=== PATIENT | female | born 1950 | race Caucasian/White ===

== ENCOUNTER 2018-10-05 15:55 | Inpatient (IN) ==
[2018-10-05] MEDS ORDERED: MoRPHine SULFATE 4 MG/ML 1 ML CARP\\VIAL IV STA ×2 (16:41→19:27)
[2018-10-05] MEDS ORDERED: ONDANSETRON INJ 2 MG/ML 2 ML VIAL IV STA ×2 (16:41→19:27)
[2018-10-05] MEDS ORDERED: DOXYCYCLINE HYCLATE 100 MG CAP PO STA (16:41)
[2018-10-05] MEDS ORDERED: LIDOCAINE HCL 1% 20 ML VIAL ONE (17:23)
[2018-10-05 17:24] LABS: Mean Corpuscular Hgb Conc 32.9 g/dL (32-36)
[2018-10-05 17:38] LABS: Hematocrit (blood only) 37.4 % (37-47); Hemoglobin 12.3 g/dL (12.0-16.0); Mean Corpuscular Volume 79.6 fL (80-100); RDW Coefficient of Variation 16.8 % (11.5-14.5); RDW Standard Deviation 49.2 fL (36.4-46.3); White Blood Count 12.23 K/uL (4.8-10.8)
[2018-10-05] MEDS ORDERED: cefTRIAXone SODIUM 2,000 MG in DEXTROSE 5% 50 ML IV STA (18:05)
[2018-10-05 18:08] LABS: Platelet Count 116 K/uL (130-400)
[2018-10-05 18:09] LABS: Basophils # (auto) 0.01 K/uL (0-0.2); Basophils % (auto) 0.1 %; Immature Granulocytes # (auto) 0.02 K/uL (0.00-0.02); Immature Granulocytes % (auto) 0.2 %; Lymphocytes % (auto) 4.9 %; Monocytes # (auto) 0.63 K/uL (0.11-0.59); Monocytes % (auto) 5.2 %; Neutrophils # (auto) 10.97 K/uL (1.4-6.5); Neutrophils % (auto) 89.6 %; Ovalocytes 1+; Platelet Estimate Decreased (Normal)
[2018-10-05 19:04] LABS: CSF Count Tube # 3
[2018-10-05 19:05] LABS: CSF Xanthrochromic No xanthochromia
[2018-10-05 19:21] LABS: Red Blood Cell CSF (A) 530 /uL (0-); White Blood Cell CSF (B) 1750 /uL (0-5)
[2018-10-05 19:22] LABS: Red Blood Cell CSF (B) 480 /uL (0-)
[2018-10-05 19:23] LABS: Mononuclear WBC CSF 20.7 %
[2018-10-05 19:24] LABS: Polynuclear WBC CSF 79.3 %; White Blood Cell CSF (A) 1936 /uL (0-5)
[2018-10-05 19:27] LABS: Appearance CSF Cloudy; Color CSF Colorless
[2018-10-05] MEDS ORDERED: VANCOMYCIN CONSULT ACTIVE PRN (19:30)
[2018-10-05] MEDS ORDERED: VANCOMYCIN HCL 1,750 MG in SODIUM CHLORIDE 0.9% 500 ML IV ONE (19:30)
[2018-10-05] MEDS ORDERED: AMPICILLIN SOD 1 GM VIAL IV ONE (19:32)
[2018-10-05] MEDS ORDERED: AMPICILLIN 2,000 MG in SODIUM CHLOR 0.9% AD-VAN 100 ML IV ONE (19:45)
[2018-10-05] MEDS ORDERED: ACETAMINOPHEN 325 MG TAB PO STA (19:54)
[2018-10-05] MEDS ORDERED: LACTATED RINGER'S 1,000 ML IV ONE (20:02)
[2018-10-05] MEDS ORDERED: KETOROLAC TROMETHAMINE 15 MG/ML VIAL IV ONE (20:25)
[2018-10-05] MEDS ORDERED: PROMETHAZINE HCL 12.5 MG in SODIUM CHLORIDE 0.9% 50 ML IV STA (20:30)
--- NOTE | 2018-10-05 20:54 | Emergency Department Note ---
Entered by María Elena Valadez acting as a scribe for History of Present Illness General Chief complaint: Illness Stated complaint: REFERRED BY DOCTOR FOR POSSIBLE MENINGITIS Time Seen by Provider: 10/05/18 16:15 Source: patient History of Present Illness Onset (ago): week(s) 1 Location: head, neck and back Pain Consistency: + other (persistent) Maximum Pain Intensity: 10 Quality: + other (illness) Exacerbated By: + movement Associated symptoms: + denies other symptoms (rhinorrhea, photophobia), + fever/chills (fever), + headaches, + nausea/vomiting (nausea) and + other (back pain, neck pain, body aches); no cough and no shortness of breath The patient is a 68 year old female who presents to the ED with complaints of persistent illness starting a week ago. The patients daughter states that the patient was here this morning and had a full work up for the same symptoms. She reports that she has been having a headache, back pain, and neck pain. She states that she was supposed to leave with a prescription of Doxycycline for anaplasmosis, but it wasnt there. She notes that she did have blood and protein in her urine so they also suspected a UTI. She states that the patient went to her PCP 2 hours ago and while there she had a fever of 102 with lower sat urations than normal. She states that they were concerned as she has worse pain with movement of her neck. She reports that they were unsure if it was just anaplasmosis and a UTI or meningitis so they sent her here for an LP to rule out meningitis. She notes that they did send out a urine culture. The patient complains of body aches and nausea. She notes that she is exposed to ticks often and last noticed one 10 days ago. The patient denies a cough, rhinorrhea, shortness of breath, photophobia, and a history of any back surgeries. Home Medications Home Medications Medication Instructions Recorded Confirmed Type citalopram [Celexa] 40 mg PO QAM 06/13/18 10/05/18 History lisinopril [Zestril] 40 mg PO QAM 06/13/18 10/05/18 History multivitamin 1 tab PO QAM 06/13/18 10/05/18 History calcium carbonate-vitamin D3 2 tab PO QAM 06/20/18 10/05/18 History [Calcium 600 + D(3)] ferrous sulfate 325 mg PO QAM 06/20/18 10/05/18 History aspirin 81 mg PO QAM 07/20/18 10/05/18 History atorvastatin 40 mg PO QAM 07/20/18 10/05/18 History omeprazole 20 mg PO BID 07/20/18 10/05/18 History docusate sodium [Colace] 100 mg PO BID #60 cap 10/05/18 10/05/18 Rx oxycodone 5 mg PO DAILY #14 tab 10/05/18 10/05/18 Rx sennosides [Senokot] 8.6 mg PO DAILY #30 tab 10/05/18 10/05/18 Rx Allergies Allergy/AdvReac Type Severity Reaction Status Date / Time Macrolide Antibiotics Allergy Mild abdominal Verified 10/05/18 18:38 pains Sulfa (Sulfonamide Allergy Mild abdominal Verified 10/05/18 18:38 Antibiotics) pains erythromycin base AdvReac Intermediate VOMITING Verified 10/05/18 18:38 Past Med/Surg History Medical History Hypertension (Chronic) IBS (irritable bowel syndrome) (Chronic) History of TIA (transient ischemic attack) (Resolved) 2000--no deficits Anemia Depression Diabetes mellitus, type 2 diet controlled Former smoker GERD (gastroesophageal reflux disease) Kidney stones Surgical History History of colonoscopy History of detached retina repair History of dilatation and curettage History of esophagogastroduodenoscopy (EGD) History of hysterectomy with unilateral oophorectomy History of tooth extraction some upper teeth History of wisdom tooth extraction Family History Uncle Family history of malignant hyperthermia maternal uncle Mother Family history of reaction to anesthesia "quit breathing after major back surgery" Father Family history of diabetes mellitus Grandmother (Paternal) Family history of diabetes mellitus Grandfather (Paternal) Family history of diabetes mellitus Uncle Family history of diabetes mellitus Aunt Family history of diabetes mellitus Brother Family history of diabetes mellitus Social History Preferred Language: Yi Communication Ability: Effective Beliefs That Will Affect Care: None Current Living Situation: Spouse Current Living Situation Comment: Lives with Feels Safe at Home: Yes Smoking Status: Never smoker Second Hand Exposure: No Hx Alcohol Use: No Hx Substance Use: No Review of Systems See HPI for pertinent positives & negatives. and A total of 10 systems reviewed and were otherwise negative Physical Exam Vital Signs Vital Signs - 24 hr 10/05/18 16:07 10/05/18 18:00 10/05/18 19:30 Temperature 37.8 C H Temperature Source Oral Sepsis Recent Fever Within 48 Hours No Sepsis New/Unexplained Change in Mental Status No Sepsis Action Taken by Nursing No Action Required Pulse Rate 79 Pulse Rate [Right Finger] 73 75 Pulse Rhythm [Right Finger] Regular Pulse Strength [Right Finger] Normal Respiratory Rate 20 18 18 Respiratory Effort / Characteristics Non-Labored Respiratory Depth Normal Respiratory Pattern Regular Blood Pressure 129/79 Blood Pressure [Right Arm] 136/63 149/70 H Blood Pressure Mean 95 Blood Pressure Mean [Right Arm] 87 96 Pulse Oximetry 91 96 95 Oxygen Delivery Method Room Air Room Air Room Air CONSTITUTIONAL/VITAL SIGNS: Reviewed / noted above. GENERAL: Non-toxic in appearance. INTEGUMENTARY: Warm, dry, and [place]. HEAD: Normocephalic. EYES: without scleral icterus or trauma. ENT/OROPHARYNX: clear and moist. LYMPHADENOPATHY/NECK: Is supple without lymphadenopathy. Neck stiffness and discomfort with flexion on exam. RESPIRATORY: Lungs clear and equal. CARDIOVASCULAR: Regular rate and rhythm. GI/ABDOMEN: Soft and nontender. No organomegaly or pulsatile mass. No rebound or guarding. Normal bowel sounds. EXTREMITIES: Warm and well perfused. BACK: No CVA tenderness. NEUROLOGICAL: Intact without focal deficits. PSYCHIATRIC: normal affect. MUSCULOSKELETAL: Normally developed with good muscle tone. Procedures Free Text Procedures Lumbar Puncture Indication: Rule out Meningitis. Verbal consent was obtained after the risks and benefits were explained, including but not limited to headache, bleeding/clotting, scarring, infection, pain, and bone/joint/nerve damage. At this time, the risks of the procedure are less than the risks of NOT performing the procedure. A time out was taken and the correct patient and site identified. The patient was placed in the left lateral recumbent position and the back was prepped with betadine and draped in the standard fashion. The L3 intervertebral space was identified, anesthetized locally with 1% lidocaine without epinephrine, and the spinal needle was inserted through the skin with the bevel parallel to the dural fibers. The needle was carefully advanced into the lumbar cistern and 4 tubes (a total of 5- 6 cc) of slightly cloudy CSF was obtained. The stylet was replaced and the needle was removed. A bandaid was placed and the patient was placed in the supine position. The patient tolerated the procedure well and there were no complications. Course 1623: I reviewed the EMR at this time. The patient was at the ED at 0400 today. She had a work up including a normal CBC, low platelet count, normal chemistries and LFTs, a urinalysis that showed contamination, negative Lyme, negative chest x-ray, CT scan of brain and neck that were negative, as well as an MRI/MRA of the brain that was negative, a neck MRA that was negative, and a CT of the abdomen/pelvis that was negative. She was discharged on Doxycycline. They were treating her for possible anaplasmosis. She went to her PCP today and they sent her back here. 1628: Past medical records reviewed. The patient was evaluated in room C6. A complete history and physical exam was performed. 1722: I performed a lumbar puncture at this time. 1935: I reevaluated the patient and updated her and her daughter on her test results at this time. I discussed the treatment plan with them. They verbally agree and understand. 1942: I discussed the patient's case with Dr. Khadijah Monahan. He will evaluate the patient for further management. Consultations Consultation #1: I discussed the patient's case with Dr. Khadijah Monahan. He will evaluate the patient for further management. Time: 19:42 Administered Medications Vancomycin HCl 1,750 mg/ (Sodium Chloride) 535 mls @ 200 mls/hr IV NOW ONE; Protocol Stop: 10/05/18 21:59 Last Admin: 10/05/18 20:20 Dose: 200 mls/hr Documented by: [id number] Lactated Ringer's (Lr) 1,000 mls @ 200 mls/hr IV .Q5H ONE Stop: 10/06/18 01:01 Last Admin: 10/05/18 20:37 Dose: 200 mls/hr Documented by: [id number] Discontinued Medications Acetaminophen (Tylenol) 650 mg PO NOW STA Stop: 10/05/18 19:55 Last Admin: 10/05/18 20:19 Dose: 650 mg Documented by: [id number] Doxycycline Hyclate (Vibramycin) 100 mg PO NOW STA Stop: 10/05/18 16:42 Last Admin: 10/05/18 17:14 Dose: 100 mg Documented by: [id number] Ceftriaxone Sodium 2,000 mg/ (Dextrose) 70 mls @ 100 mls/hr IV NOW STA Stop: 10/05/18 18:46 Last Infusion: 10/05/18 19:38 Dose: 0 mls/hr Documented by: [id number] Admin: 10/05/18 18:52 Dose: 100 mls/hr Documented by: [id number] Ampicillin Sodium 2,000 mg/ (Sodium Chloride) 100 mls @ 200 mls/hr IV NOW ONE Stop: 10/05/18 20:14 Last Infusion: 10/05/18 20:32 Dose: 0 mls/hr Documented by: [id number] Admin: 10/05/18 19:58 Dose: 200 mls/hr Documented by: [id number] Lidocaine HCl (Xylocaine 1% (Local)) Confirm Administered Dose 20 ml .ROUTE .[facility] ONE Stop: 10/05/18 17:24 Last Admin: 10/05/18 17:35 Dose: 20 ml Documented by: [id number] Morphine Sulfate (Morphine Sulfate) 4 mg IV NOW STA Stop: 10/05/18 16:42 Last Admin: 10/05/18 17:14 Dose: 4 mg Documented by: [id number] Morphine Sulfate (Morphine Sulfate) 4 mg IV NOW STA Stop: 10/05/18 19:28 Last Admin: 10/05/18 19:31 Dose: 4 mg Documented by: [id number] Ondansetron HCl (Zofran) 4 mg IV NOW STA Stop: 10/05/18 16:42 Last Admin: 10/05/18 17:14 Dose: 4 mg Documented by: [id number] Ondansetron HCl (Zofran) 4 mg IV NOW STA Stop: 10/05/18 19:28 Last Admin: 10/05/18 19:31 Dose: 4 mg Documented by: [id number] Medical Decision Making Differential Diagnosis Differential diagnosis: Etiologies such as viral syndrome, otitis, pharyngitis, pneumonia, influenza, meningitis, urinary tract infection, sepsis, bacteremia, as well as others were entertained. Medical Records Attestation: I reviewed the patient's medical records. Home Medications Current Medication List: was personally reviewed by me Laboratory Data Attestation: I reviewed the patient's lab results. Result diagrams: 10/05/18 17:16 Lab Results 10/05/18 10/05/18 10/05/18 Range/Units 17:16 17:48 17:48 WBC 12.23 H (4.8-10.8) K/uL RBC 4.70 (4.2-5.4) M/uL Hgb 12.3 (12.0-16.0) g/dL Hct 37.4 (37-47) % MCV 79.6 L (80-100) fL MCH 26.2 (25-34) pg MCHC 32.9 (32-36) g/dL RDW Std Deviation 49.2 H (36.4-46.3) fL RDW Coeff of Christian 16.8 H (11.5-14.5) % Plt Count 116 L (130-400) K/uL Immature Gran % (Auto) 0.2 % Neut % (Auto) 89.6 % Lymph % (Auto) 4.9 % [place] % (Auto) 5.2 % Eos % (Auto) 0.0 % Baso % (Auto) 0.1 % Immature Gran # (Auto) 0.02 (0.00-0.02) K/uL Neut # (Auto) 10.97 H (1.4-6.5) K/uL Lymph # (Auto) 0.60 L (1.2-3.4) K/uL Brule # (Auto) 0.63 H (0.11-0.59) K/uL Eos # (Auto) 0.00 (0-0.5) K/uL Baso # (Auto) 0.01 (0-0.2) K/uL Platelet Estimate Decreased L (Normal) Ovalocytes 1+ Lactate (0.4-2.0) mmol/L Magnesium (1.8-2.4) mg/dl CSF Appearance Cloudy CSF Color Colorless Xanthrochromic No xanthochromia CSF WBC 1936 H* (0-5) /uL CSF RBC 530 (0-) /uL CSF Cell Count Tube # 3 CSF Mononuclear WBCs 20.0 % CSF Mononuclear WBCs % 20.7 % CSF Polynuclear WBCs 80.0 % CSF Polynuclear WBCs % 79.3 % CSF Chemistry Tube # 1 CSF Glucose 82 H (40-70) mg/dl CSF Total Protein 304.0 H (15-45) mg/dl 10/05/18 10/05/18 Range/Units 20:06 20:06 WBC (4.8-10.8) K/uL RBC (4.2-5.4) M/uL Hgb (12.0-16.0) g/dL Hct (37-47) % MCV (80-100) fL MCH (25-34) pg MCHC (32-36) g/dL RDW Std Deviation (36.4-46.3) fL RDW Coeff of Christian (11.5-14.5) % Plt Count (130-400) K/uL Immature Gran % (Auto) % Neut % (Auto) % Lymph % (Auto) % [place] % (Auto) % Eos % (Auto) % Baso % (Auto) % Immature Gran # (Auto) (0.00-0.02) K/uL Neut # (Auto) (1.4-6.5) K/uL Lymph # (Auto) (1.2-3.4) K/uL Brule # (Auto) (0.11-0.59) K/uL Eos # (Auto) (0-0.5) K/uL Baso # (Auto) (0-0.2) K/uL Platelet Estimate (Normal) Ovalocytes Lactate 0.9 (0.4-2.0) mmol/L Magnesium 2.4 (1.8-2.4) mg/dl CSF Appearance CSF Color Xanthrochromic CSF WBC (0-5) /uL CSF RBC (0-) /uL CSF Cell Count Tube # CSF Mononuclear WBCs % CSF Mononuclear WBCs % % CSF Polynuclear WBCs % CSF Polynuclear WBCs % % CSF Chemistry Tube # CSF Glucose (40-70) mg/dl CSF Total Protein (15-45) mg/dl Blood Pressure Blood Pressure Findings: Normal blood pressure Blood Pressure Disposition: did not require urgent referral MDM Narrative This is a 68-year-old female who presents to the ED with a chief complaint of headache, fever as well as a little nausea and achiness all over. She reports some neck discomfort with flexion. Denies any light sensitivity. She was seen here earlier in the day around 4 AM and had a significant work-up. She had a normal WBC at that time. She was given IV Rocephin as well as a dose of doxycycline orally for possibility of anaplasmosis. She did have a low platelet count on her CBC this morning. The patient presents again this evening with continued symptoms. She was seen at the primary care's office and then sent back here. The patient's temperature here today is 37.8. 91% oxygen satur ations on room air. White blood cell count was 12.2. Platelet count is 116. A lumbar puncture reveals a white cell count of 1936. Protein is elevated as is the glucose. Additional studies were performed earlier today. The patient was treated with IV morphine as well as IV Zofran and given a dose of oral doxycycline. She was additionally treated with IV Rocephin, IV vancomycin and IV ampicillin. She will be seen by the hospitalist for further inpatient evaluation and care. Impression & Plan Meningitis, Thrombocytopenia, Fever Critical Care Time Critical Care Time: Yes Total Critical Care Time: 32 I have personally spent 32 minutes of critical care time in the direct management of this patient. This includes bedside care, interpretation of diagnostic studies, and testing, discussion with consultants, patient, and family members, and other required patient management activities. This 32 minutes is in excess of all separately billable procedures. Discharge Plan Visit Data Chief Complaint: Illness Stated Complaint: REFERRED BY DOCTOR FOR POSSIBLE MENINGITIS ED Provider: David Hu Discharge Problem: Meningitis, Thrombocytopenia, Fever Patient Disposition: Being Evaluated by Hospitalist Forms Stand Alone Forms: My [facility] Prescriptions Prescriptions: No Action oxycodone 5 mg tablet 5 mg PO DAILY Qty: 14 RF: 0 sennosides [Senokot] 8.6 mg tablet 8.6 mg PO DAILY Qty: 30 RF: 0 docusate sodium [Colace] 100 mg capsule 100 mg PO BID Qty: 60 RF: 0 lisinopril [Zestril] 40 mg tablet 40 mg PO QAM RF: 0 citalopram [Celexa] 40 mg tablet 40 mg PO QAM RF: 0 multivitamin Tablet 1 tab PO QAM RF: 0 calcium carbonate-vitamin D3 [Calcium 600 + D(3)] 600 mg(1,500mg) -200 unit Tablet 2 tab PO QAM RF: 0 ferrous sulfate 325 mg (65 mg iron) Tablet 325 mg PO QAM RF: 0 atorvastatin 40 mg Tablet 40 mg PO QAM RF: 0 aspirin 81 mg Tablet,Delayed Release (Dr/Ec) 81 mg PO QAM RF: 0 omeprazole 20 mg Tablet,Delayed Release (Dr/Ec) 20 mg PO BID RF: 0 Referrals Referrals: Aleja Godoy MD [Primary Care Provider] - Discharge Problem: Fever Qualifiers: Fever type: unspecified Qualified Code(s): R50.9 - Fever, unspecified The scribe's documentation has been prepared under my direction and personally reviewed by me in its entirety. I confirm that the note above accurately reflects all work, treatment, procedures, and medical decision making performed by me.
--- NOTE | 2018-10-05 21:52 | History & Physical Report ---
Date of Service October 05, 2018 Assessment & Plan (1) Sepsis: Secondary to possible bacterial meningitis hypertension, slightly elevated secondary illness hyperlipidemia on statin Rx mood disorder, stable DM 2, diet-controlled. Well-controlled as of recent outpatient hemoglobin A1c of 6.5 last March 2018 Thrombocytopenia secondary to sepsis History TIA as per records GMF Cultures, IV Vancomycin, Ceftriaxone IV Decadron until pneumococcal meningitis ruled out ID consult RE [employer] infection ISS BG goal 1 40-1 80, basal insulin to attain goal given expected hyperglycemia secondary to steroid Rx, update hemoglobin A1c DVT prophylaxis. SCDs RE thrombocytopenia Full code Patient's daughter requesting updates from providers. Ms. Jessica Singer, contact #[phone]. History of Present Illness Chief Complaint: Headache/fever Primary Care Provider: Aleja Lyles MD History obtained from patient, family, and records. Medical history significant for hypertension, hyperlipidemia, mood disorder, DM 2, diet-controlled, history of TIA as per records Yesterday, patient noted achy headache, neck/spine pain. Patient had chills at home. No rashes noted. Nausea, emesis symptoms. No chest pain, no S OB. Patient seen at the emergency room this morning. Patient noted to be thrombocytopenic. Unremarkable imaging. Tick labwork drawn. Patient prescribed Doxycycline for possible tickborne infection. Patient sent back to the ER by PCP due to concerns for [employer] infection. Lumbar puncture done at the ER. Patient given IV Vancomycin, Ceftriaxone for possible bacterial meningitis. No known sick contacts, no previous history of meningitis. Medical History as above Surgical History : Appendectomy, eye surgery, hysterectomy Family History : Breast cancer, diabetes, heart disease, glaucoma Personal/Social history : Non-smoker, no EtOH intake, retired from postal work/cleaning business Allergies Allergy/AdvReac Type Severity Reaction Status Date / Time Macrolide Antibiotics Allergy Mild abdominal Verified 10/05/18 18:38 pains Sulfa (Sulfonamide Allergy Mild abdominal Verified 10/05/18 18:38 Antibiotics) pains erythromycin base AdvReac Intermediate VOMITING Verified 10/05/18 18:38 Home Medications Home Medications Medication Instructions Recorded Confirmed Type citalopram [Celexa] 40 mg PO QAM 06/13/18 10/05/18 History lisinopril [Zestril] 40 mg PO QAM 06/13/18 10/05/18 History multivitamin 1 tab PO QAM 06/13/18 10/05/18 History calcium carbonate-vitamin D3 2 tab PO QAM 06/20/18 10/05/18 History [Calcium 600 + D(3)] ferrous sulfate 325 mg PO QAM 06/20/18 10/05/18 History aspirin 81 mg PO QAM 07/20/18 10/05/18 History atorvastatin 40 mg PO QAM 07/20/18 10/05/18 History omeprazole 20 mg PO BID 07/20/18 10/05/18 History docusate sodium [Colace] 100 mg PO BID #60 cap 10/05/18 10/05/18 Rx oxycodone 5 mg PO DAILY #14 tab 10/05/18 10/05/18 Rx sennosides [Senokot] 8.6 mg PO DAILY #30 tab 10/05/18 10/05/18 Rx Past Med/Surg History Medical History Hypertension (Chronic) IBS (irritable bowel syndrome) (Chronic) History of TIA (transient ischemic attack) (Resolved) 2000--no deficits Anemia Depression Diabetes mellitus, type 2 diet controlled Former smoker GERD (gastroesophageal reflux disease) Kidney stones Surgical History History of colonoscopy History of detached retina repair History of dilatation and curettage History of esophagogastroduodenoscopy (EGD) History of hysterectomy with unilateral oophorectomy History of tooth extraction some upper teeth History of wisdom tooth extraction Family History Uncle Family history of malignant hyperthermia maternal uncle Mother Family history of reaction to anesthesia "quit breathing after major back surgery" Father Family history of diabetes mellitus Grandmother (Paternal) Family history of diabetes mellitus Grandfather (Paternal) Family history of diabetes mellitus Uncle Family history of diabetes mellitus Aunt Family history of diabetes mellitus Brother Family history of diabetes mellitus Social History Preferred Language: Croatian Communication Ability: Effective Beliefs That Will Affect Care: None Current Living Situation: Spouse Current Living Situation Comment: Lives with Other Information That Helps Us Care for You: No Feels Safe at Home: Yes Smoking Status: Never smoker Second Hand Exposure: No Hx Alcohol Use: No Hx Substance Use: No Review of Systems Review of Systems: As per HPI, all 10 systems reviewed, all other ROS negative Physical Exam Physical Exam: GENERAL: Slightly uncomfortable, no respiratory distress, pleasant SKIN: Normal color, warm HEENT: [place] palpebral conjunctivae, no ptosis, dry buccal mucosa NECK : Nuchal rigidity, minimal posterior cervical CHEST : CTA, no tenderness HEART : RRR, no obvious murmurs ABDOMEN: Some distention, nontender EXTREMITIES : No LE swelling/tenderness, no other conspicuous deformities noted NEUROLOGIC : Coherent, no facial asymmetry, minimal nuchal rigidity Results & Data Vital Signs (Past 12 Hours) Vital Signs Temp Pulse Pulse Resp BP BP Pulse Ox 10/05/18 21:00 70 18 158/81 H 94 10/05/18 19:30 75 18 149/70 H 95 10/05/18 18:00 73 18 136/63 96 10/05/18 16:07 37.8 C H 79 20 129/79 91 Laboratory Results Laboratory Results WBC 12.23 K/uL (4.8-10.8) H 10/05/18 17:16 RBC 4.70 M/uL (4.2-5.4) 10/05/18 17:16 Hgb 12.3 g/dL (12.0-16.0) 10/05/18 17:16 Hct 37.4 % (37-47) 10/05/18 17:16 MCV 79.6 fL (80-100) L 10/05/18 17:16 MCH 26.2 pg (25-34) 10/05/18 17:16 MCHC 32.9 g/dL (32-36) 10/05/18 17:16 RDW Std Deviation 49.2 fL (36.4-46.3) H 10/05/18 17:16 RDW Coeff of Christian 16.8 % (11.5-14.5) H 10/05/18 17:16 Plt Count 116 K/uL (130-400) L 10/05/18 17:16 Immature Gran % (Auto) 0.2 % 10/05/18 17:16 Neut % (Auto) 89.6 % 10/05/18 17:16 Lymph % (Auto) 4.9 % 10/05/18 17:16 Page % (Auto) 5.2 % 10/05/18 17:16 Eos % (Auto) 0.0 % 10/05/18 17:16 Baso % (Auto) 0.1 % 10/05/18 17:16 Immature Gran # (Auto) 0.02 K/uL (0.00-0.02) 10/05/18 17:16 Neut # (Auto) 10.97 K/uL (1.4-6.5) H 10/05/18 17:16 Lymph # (Auto) 0.60 K/uL (1.2-3.4) L 10/05/18 17:16 Page # (Auto) 0.63 K/uL (0.11-0.59) H 10/05/18 17:16 Eos # (Auto) 0.00 K/uL (0-0.5) 10/05/18 17:16 Baso # (Auto) 0.01 K/uL (0-0.2) 10/05/18 17:16 Platelet Estimate Decreased (Normal) L 10/05/18 17:16 Ovalocytes 1+ 10/05/18 17:16 Lactate 0.9 mmol/L (0.4-2.0) 10/05/18 20:06 Magnesium 2.4 mg/dl (1.8-2.4) 10/05/18 20:06 CSF Appearance Cloudy 10/05/18 17:48 CSF Color Colorless 10/05/18 17:48 Xanthrochromic No xanthochromia 10/05/18 17:48 CSF WBC 1936 /uL (0-5) H* 10/05/18 17:48 CSF RBC 530 /uL (0-) 10/05/18 17:48 CSF Cell Count Tube # 3 10/05/18 17:48 CSF Mononuclear WBCs 20.0 % 10/05/18 17:48 CSF Mononuclear WBCs % 20.7 % 10/05/18 17:48 CSF Polynuclear WBCs 80.0 % 10/05/18 17:48 CSF Polynuclear WBCs % 79.3 % 10/05/18 17:48 CSF Chemistry Tube # 1 10/05/18 17:48 CSF Glucose 82 mg/dl (40-70) H 10/05/18 17:48 CSF Total Protein 304.0 mg/dl (15-45) H 10/05/18 17:48 Diagnostic Findings Brain MRI: No acute intracranial abnormality Chest x-ray showed hiatal hernia EKG as per my interpretation : Rate 65, NSR, T wave flattening lateral leads
[2018-10-05] MEDS ORDERED: dexAMETHasone 10 MG in SYRINGE 0 ML IV STA (21:53)
[2018-10-05] MEDS ORDERED: DEXAMETHASONE **PF** INJ 10 MG/ML VIAL IV STA (21:58)
[2018-10-06] MEDS ORDERED: GLUCOSE 10 TABS/TUBE PO PRN (00:11)
[2018-10-06] MEDS ORDERED: INSULIN GLARGINE SOLOSTAR 100 UNITS/ML 3 ML PEN SQ STA (00:11)
[2018-10-06] MEDS ORDERED: GLUCOSE 40% GEL 15 GM TUBE PO PRN (00:11)
[2018-10-06] MEDS ORDERED: LACTATED RINGER'S 1,000 ML IV ONE (00:11)
[2018-10-06] MEDS ORDERED: CARBOHYDRATES FOR HYPOGLYCEMIA PO PRN (00:11)
[2018-10-06] MEDS ORDERED: DEXTROSE 50% 50 ML SYRINGE IV PRN (00:11)
[2018-10-06] MEDS ORDERED: GLUCAGON FOR INJ 1 MG VIAL SQ PRN (00:11)
[2018-10-06] MEDS ORDERED: PROMETHAZINE HCL 12.5 MG in SODIUM CHLORIDE 0.9% 50 ML IV PRN (00:11)
[2018-10-06] MEDS: INSULIN ASPART 100 UNITS/ML 3 ML PEN SC SCH ×5 (00:51→21:31)
[2018-10-06] MEDS: PATIENT'S HEIGHT AND/OR WEIGHT NEEDED SCH ×2 (03:53→06:56)
[2018-10-06] MEDS: dexAMETHasone 10 MG in SYRINGE 0 ML IV SCH ×4 (04:47→21:38)
[2018-10-06] MEDS: ACETAMINOPHEN 325 MG TAB PO PRN (04:50)
[2018-10-06 06:54] LABS: Estimated Average Glucose 146 mg/dl; Hemoglobin A1C 6.7 % (4.5-5.6)
[2018-10-06] MEDS: IBUPROFEN 200 MG TAB PO PRN ×2 (07:32→14:29)
[2018-10-06] MEDS: PANTOprazole 40 MG TAB PO SCH ×2 (07:33→21:31)
[2018-10-06] MEDS: FERROUS SULFATE 325 MG TAB PO SCH (07:33)
[2018-10-06] MEDS: SENNA 8.6 MG TAB PO SCH (07:33)
[2018-10-06] MEDS: ATORVASTATIN 40 MG TAB PO SCH (07:33)
[2018-10-06] MEDS: MULTIVITAMIN TAB PO SCH (07:33)
[2018-10-06] MEDS: LISINOPRIL 40 MG TAB PO SCH (07:33)
[2018-10-06] MEDS: DOCUSATE SODIUM 100 MG CAP PO SCH ×2 (07:34→21:30)
[2018-10-06] MEDS: CITALOPRAM 40 MG TAB PO SCH (07:34)
[2018-10-06] MEDS ORDERED: VANCOMYCIN HCL 1,000 MG in SODIUM CHLORIDE 0.9% 250 ML IV SCH (08:00)
--- NOTE | 2018-10-06 08:47 | Pharmacy Report ---
Pharmacy Abx Initial Consult - Date of Service October 06, 2018 - Pharmacy Dosing Scope Date of Consult: 10/05/18 Consultation requested by: Dr. Wan Pharmacy is consulted to initiate Vancomycin IV dosing therapy, order appropriate labs and adjust drug dose/frequency. Patient is also ordered Ceftriaxone per provider dosing. - Subjective The patient is a 68 year old F admitted on 10/05/18 21:59. - Objective Height: 5 ft 6 in Weight: 74.8 kg Vital Signs (Past 12hrs): Vital Signs Temp Pulse Resp BP Pulse Ox 10/06/18 07:12 37.6 C H 68 20 128/73 94 10/05/18 23:51 37 C 62 18 113/74 96 10/05/18 22:21 65 18 173/84 H 98 10/05/18 21:00 70 18 158/81 H 94 Lab Results (24hrs): Laboratory Tests (24 Hours) 10/05/18 17:16 WBC 12.23 H Neut # (Auto) 10.97 H Micro Results: 10/05/18 17:48 CSF Culture - Pending Cerebral Spinal Fluid 10/05/18 17:16 Aerobic Blood Culture - Pending Blood Anaerobic Blood Culture - Pending 10/05/18 17:16 Aerobic Blood Culture - Pending Blood Anaerobic Blood Culture - Pending Laboratory Tests 10/05/18 10/05/18 17:48 17:48 CSF Appearance Cloudy CSF Color Colorless Xanthrochromic No xanthochromia CSF WBC 1936 H* CSF Glucose 82 H CSF Total Protein 304.0 H - Risk Factors for Resistance * N/A - Assessment & Plan Assessment * 68 year old F receiving empiric IV abx tx for bacterial meningitis * Patient ordered IV Vanco + Ceftriaxone. * The incidence of bacterial meningitis caused by L. monocytogenes rises with increasing age. For this reason, adults >50 years of age should receive an antimicrobial agent with activity against L. monocytogenes (IV ampicillin). * Current dosing of Ceftriaxone is 2,000mg IV Q24hrs; recommended dosing for meningitis is 2,000mg IV Q12hrs. May need to increase frequency to Q12h. Plan Vancomycin IV * Estimated PK Parameters: Vd 0.6 L/kg, Himanshu 0.062 hr-1, t1/2 11.2hr * Loading dose: 1,750 mg (23 mg/kg) * Maintenance dose: 1,250 mg IV (16 mg/kg) every 12 hours * Goal trough level for meningitis : 15 to 20 mcg/mL * Trough level ordered for 10/07/18 @ 1730 Ceftriaxone * Ordered 1,000mg IV Q24hrs --> dose increased to 2,000mg IV Q24hrs for wt >80kg per P&T approved substitution * Recommended dosing for meningitis is 2,000mg IV Q12hrs. May need to increase frequency to Q12h. Ampicillin * Received one dose in ED 10/05/18 @ ~2000. * Recommend starting Ampicillin 2,000mg IV Q4hrs Pharmacy will continue to follow and will adjust dose/frequency as necessary. Thank you.
[2018-10-06 08:56] LABS: Mean Corpuscular Hgb Conc 32.6 g/dL (32-36)
[2018-10-06] MEDS ORDERED: ASPIRIN 325 MG ECTAB PO SCH (09:00)
[2018-10-06 09:10] LABS: Hemoglobin 11.4 g/dL (12.0-16.0); Mean Corpuscular Volume 81.8 fL (80-100); RDW Standard Deviation 50.6 fL (36.4-46.3); Red Blood Count 4.28 M/uL (4.2-5.4); White Blood Count 11.61 K/uL (4.8-10.8)
[2018-10-06 09:19] LABS: Immature Granulocytes # (auto) 0.03 K/uL (0.00-0.02); Immature Granulocytes % (auto) 0.3 %; Lymphocytes # (auto) 0.57 K/uL (1.2-3.4); Lymphocytes % (auto) 4.9 %; Monocytes # (auto) 0.38 K/uL (0.11-0.59); Monocytes % (auto) 3.3 %; Neutrophils # (auto) 10.63 K/uL (1.4-6.5); Neutrophils % (auto) 91.5 %; Platelet Count 101 K/uL (130-400); Platelet Estimate Decreased (Normal)
--- NOTE | 2018-10-06 09:47 | Infectious Disease Consult ---
Date of Consultation October 06, 2018 Assessment & Plan (1) Meningitis: Viral vs early bacterial, doubt lyme. Follow cultures, all currently pending. gram stain negative. pt will continue with emperic abx, add ampicillin due to concern for Listeria. will add acyclovir and add HSV PCR to CSF. Cl inically improved. History of Present Illness Attending Physician: Lexis Andre MD pt admitted with COELLO and back/neck pain. Initially presented to ER early morning, woke up with coello, chills and neck pain. no visual change, no photophobia, was eval in ER, found to have low platelets, given doxy and d/c home with dx of Anaplasma. She continued to have coello throughout Thrusday, saw PCP, concern for meningitis, sent back to ER, MRI/MRA, ct head and neck all negative. Underwent LP, 1935 wbc 80%N, glucose 82, protein 304. States worst coello she has had. Children at bedside. She reports feeling significantly better today, children agree she is much more comfortable. She does admit to slight COELLO this am, neck and back pain resolved. tmax in ER 37.8, afebrile this am. no additional episodes of chills. No visual change, no neck stiffness, no cp, sob, cough, yu, no abd pain, no n/v/d, eating clear liquids, hungry. No gu symptoms, no rash, myalgias, arthralgias, no known insect bites. no st. Denies sick contacts, lives with . No pets. 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 Has grandchildren but all healthy. Started on rocephin and vanco in ER, tolerating well. CSF and blood cultures pending, gram stain with wbc but no organisms. Does not eat unpasteurized foods but has had fresh fruits recently. wbc 12, UA negative, lyme screen negative, Anaplasma ab pending, smear negative. creat nml. [place] pending. Allergies Allergy/AdvReac Type Severity Reaction Status Date / Time Macrolide Antibiotics Allergy Mild abdominal Verified 10/05/18 18:38 pains Sulfa (Sulfonamide Allergy Mild abdominal Verified 10/05/18 18:38 Antibiotics) pains erythromycin base AdvReac Intermediate VOMITING Verified 10/05/18 18:38 Home Medications Home Medications Medication Instructions Recorded Confirmed Type citalopram [Celexa] 40 mg PO QAM 06/13/18 10/05/18 History lisinopril [Zestril] 40 mg PO QAM 06/13/18 10/05/18 History multivitamin 1 tab PO QAM 06/13/18 10/05/18 History calcium carbonate-vitamin D3 2 tab PO QAM 06/20/18 10/05/18 History [Calcium 600 + D(3)] ferrous sulfate 325 mg PO QAM 06/20/18 10/05/18 History aspirin 81 mg PO QAM 07/20/18 10/05/18 History atorvastatin 40 mg PO QAM 07/20/18 10/05/18 History omeprazole 20 mg PO BID 07/20/18 10/05/18 History docusate sodium [Colace] 100 mg PO BID #60 cap 10/05/18 10/05/18 Rx oxycodone 5 mg PO DAILY #14 tab 10/05/18 10/05/18 Rx sennosides [Senokot] 8.6 mg PO DAILY #30 tab 10/05/18 10/05/18 Rx Patient History Medical History Hypertension (Chronic) IBS (irritable bowel syndrome) (Chronic) History of TIA (transient ischemic attack) (Resolved) 2000--no deficits Anemia Depression Diabetes mellitus, type 2 diet controlled Former smoker GERD (gastroesophageal reflux disease) Kidney stones Surgical History History of colonoscopy History of detached retina repair History of dilatation and curettage History of esophagogastroduodenoscopy (EGD) History of hysterectomy with unilateral oophorectomy History of tooth extraction some upper teeth History of wisdom tooth extraction Family History Uncle Family history of malignant hyperthermia maternal uncle Mother Family history of reaction to anesthesia "quit breathing after major back surgery" Father Family history of diabetes mellitus Grandmother (Paternal) Family history of diabetes mellitus Grandfather (Paternal) Family history of diabetes mellitus Uncle Family history of diabetes mellitus Aunt Family history of diabetes mellitus Brother Family history of diabetes mellitus Social History Preferred Language: Nepalese Communication Ability: Effective Beliefs That Will Affect Care: None Current Living Situation: Spouse Current Living Situation Comment: Lives with Other Information That Helps Us Care for You: No Feels Safe at Home: Yes Smoking Status: Never smoker Second Hand Exposure: No Hx Alcohol Use: No Hx Substance Use: No Review of Systems Review of Systems: All systems reviewed & are unremarkable except as noted in HPI & below Physical Exam Constitutional: WD/WN, vitals as above well developed and well nourished; no acute distress, not ill appearing and no altered mental status Eyes: PERRL, conjunctivae normal, anicteric sclerae ENMT: external ear and nose normal, oropharynx normal Neck: normal visual inspection Respiratory: normal respiratory effort, lungs clear to auscultation Cardiovascular: RRR, no murmur, no edema Gastrointestinal (Abdomen): normal bowel sounds, soft, nontender, no hepatosplenomegaly Musculoskeletal: no cyanosis or clubbing, extremities motor strength 5/5 Head/Neck/Chest: neck supple; full ROM of neck Skin: no rashes, warm and dry Psychiatric: A+Ox3, euthymic affect Results & Data Vital Signs (Past 12 Hours) Vital Signs Temp Pulse Resp BP Pulse Ox 10/06/18 07:12 37.6 C H 68 20 128/73 94 10/05/18 23:51 37 C 62 18 113/74 96 10/05/18 22:21 65 18 173/84 H 98 Laboratory Results Microbiology 10/05/18 17:48 Cerebral Spinal Fluid Gram Stain - Final
[2018-10-06] MEDS ORDERED: AMPICILLIN 250 MG in SODIUM CHLORIDE 0.9% 50 ML IV SCH (10:00)
[2018-10-06] MEDS: cefTRIAXone SODIUM 2,000 MG in DEXTROSE 5% 50 ML IV SCH ×2 (11:11→21:47)
[2018-10-06 11:35] LABS: Creatinine Clr Calc Pharmacy 79.5 ml/min; Est GFR (African American) 103.2
[2018-10-06] MEDS: AMPICILLIN 2,000 MG in SODIUM CHLOR 0.9% AD-VAN 100 ML IV SCH ×4 (12:08→21:37)
[2018-10-06] MEDS: ACYCLOVIR SOD 750 MG in DEXTROSE 5% 250 ML IV SCH ×2 (12:41→20:03)
--- NOTE | 2018-10-06 13:00 | Hospitalist Progress Note ---
Date of Service October 06, 2018 Assessment & Plan (1) Sepsis: Sepsis secondary to meningitis -"pt admitted with COELLO and back/neck pain. Initially presented to ER early morning, woke up with coello, chills and neck pain. no visual change, no photophobia, was eval in ER, found to have low platelets, given doxy and d/c home with dx of Anaplasma. She continued to have coello throughout Thrusday, saw PCP, concern for meningitis, sent back to ER, MRI/MRA, ct head and neck all negative. 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 SCDs Full code Patient's daughter requesting updates from providers. Ms. Jessica Singer, contact #[phone]. Subjective Patient seen and examined at bedside. Daughter Jessica ([phone]) also at bedside. Patient appears nontoxic. she is comfortable. on IV antibiotics. no chest pain. no shortness of breath. no headache. no dysuria. she does not have acute neck or back pain. Physical Exam Constitutional: comfortable Eyes: PERRL, conjunctivae normal, anicteric sclerae EOM intact bilaterally ENMT: external ear and nose normal, oropharynx normal Neck: trachea midline, no thyromegaly Respiratory: normal respiratory effort, lungs clear to auscultation Cardiovascular: RRR, no murmur, no edema Gastrointestinal (Abdomen): normal bowel sounds, soft, nontender, no hepatosplenomegaly Musculoskeletal: no cyanosis or clubbing, extremities motor strength 5/5 Head/Neck/Chest: normocephalic and head atraumatic Neurologic: PERRL, EOMI, accommodation nl, no face palsy, no dysarthria CN's II-XI intact bilaterally Psychiatric: A+Ox3, euthymic affect Results & Data Vital Signs (Past 12 Hours) Vital Signs Temp Pulse Resp BP Pulse Ox 10/06/18 07:12 37.6 C H 68 20 128/73 94
[2018-10-06] MEDS ORDERED: ACYCLOVIR SOD 700 MG in DEXTROSE 5% 100 ML IV SCH (14:00)
[2018-10-06] MEDS: KETOROLAC TROMETHAMINE 15 MG/ML VIAL IV PRN ×2 (15:02→21:25)
[2018-10-06] MEDS ORDERED: cefTRIAXone SODIUM 2,000 MG in DEXTROSE 5% 50 ML IV SCH (18:00)
[2018-10-06] MEDS ORDERED: DiphenhydrAMINE HCL 50 MG/ML VIAL IV STA (18:54)
[2018-10-06] MEDS ORDERED: DiphenhydrAMINE HCL 50 MG/ML VIAL IV PRN (18:54)
[2018-10-06] MEDS: VANCOMYCIN HCL 1,250 MG in SODIUM CHLORIDE 0.9% 250 ML IV SCH (19:18)
[2018-10-06] MEDS: INSULIN GLARGINE SOLOSTAR 100 UNITS/ML 3 ML PEN SQ SCH (21:31)
[2018-10-07] MEDS ORDERED: LORazepam 0.5 MG TAB PO STA (01:01)
[2018-10-07] MEDS: AMPICILLIN 2,000 MG in SODIUM CHLOR 0.9% AD-VAN 100 ML IV SCH ×6 (02:28→23:14)
[2018-10-07] MEDS: ACYCLOVIR SOD 750 MG in DEXTROSE 5% 250 ML IV SCH (02:29)
[2018-10-07] MEDS: OXYCODONE HCL IR 5 MG TAB (IMMEDIATE RELEASE) PO PRN ×3 (02:43→21:43)
[2018-10-07] MEDS: dexAMETHasone 10 MG in SYRINGE 0 ML IV SCH ×4 (03:16→21:08)
[2018-10-07] MEDS: KETOROLAC TROMETHAMINE 15 MG/ML VIAL IV PRN (03:53)
[2018-10-07] MEDS: VANCOMYCIN HCL 1,250 MG in SODIUM CHLORIDE 0.9% 250 ML IV SCH (05:29)
[2018-10-07] MEDS ORDERED: VANCOMYCIN TROUGH ONE (07:30)
[2018-10-07 07:37] LABS: Creatinine Clr Calc Pharmacy 92.8 ml/min; Est GFR (African American) 108.5; Est GFR (Non-African American) 93.7
--- NOTE | 2018-10-07 07:44 | Infectious Disease Progress Nt ---
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 will continue amp, add gent and stop other abx. Follow cultures. Clinically improving, blood cultures negative to date. will need picc line and 21 days totatl ampicillin. continue gent while in hospit al. Can stop droplet precautions. Subjective pt resting comfortably. states she had back pain overnight, releived with pain meds. afebrile. remains on abx. csf culture gpr, ID pending, blood cultures negative to date. tolerating abx. wbc improved to 11 today. denies mcmullen. no cp, sob, n/v/d, no gu symptoms. overall, feeling better. Review of Systems Review of Systems: All systems reviewed & are unremarkable except as noted in HPI & below Physical Exam Constitutional: WD/WN, vitals as above well developed and well nourished; no acute distress, not ill appearing and no altered mental status Eyes: PERRL, conjunctivae normal, anicteric sclerae ENMT: external ear and nose normal, oropharynx normal Neck: normal visual inspection Respiratory: normal respiratory effort, lungs clear to auscultation Cardiovascular: RRR, no murmur, no edema Gastrointestinal (Abdomen): normal bowel sounds, soft, nontender, no hepatosplenomegaly Musculoskeletal: no cyanosis or clubbing, extremities motor strength 5/5 Head/Neck/Chest: neck supple; full ROM of neck Skin: no rashes, warm and dry Psychiatric: A+Ox3, euthymic affect Results & Data Vital Signs (Past 12 Hours) Vital Signs Temp Pulse Resp BP Pulse Ox 10/06/18 23:41 37.2 C 74 18 137/65 98 Laboratory Results Microbiology 10/05/18 17:16 Blood Aerobic Blood Culture - Preliminary No growth in Aerobic bottle after 24 hours. 10/05/18 17:16 Blood Anaerobic Blood Culture - Preliminary No growth in Anaerobic bottle after 24 hours. 10/05/18 17:16 Blood Aerobic Blood Culture - Preliminary No growth in Aerobic bottle after 24 hours. 10/05/18 17:16 Blood Anaerobic Blood Culture - Preliminary No growth in Anaerobic bottle after 24 hours. 10/05/18 17:48 Cerebral Spinal Fluid Gram Stain - Final 10/05/18 17:48 Cerebral Spinal Fluid CSF Culture - Preliminary Gram positive bacilli
[2018-10-07] MEDS ORDERED: GENTAMICIN CONSULT ACTIVE PRN (07:45)
[2018-10-07] MEDS: INSULIN ASPART 100 UNITS/ML 3 ML PEN SC SCH ×4 (08:59→21:19)
[2018-10-07] MEDS ORDERED: GENTAMICIN SULFATE 75 MG in DEXTROSE 5% 100 ML IV SCH (09:00)
[2018-10-07] MEDS: FERROUS SULFATE 325 MG TAB PO SCH (09:06)
[2018-10-07] MEDS: MULTIVITAMIN TAB PO SCH (09:06)
[2018-10-07] MEDS: PANTOprazole 40 MG TAB PO SCH ×2 (09:06→21:06)
[2018-10-07] MEDS: DOCUSATE SODIUM 100 MG CAP PO SCH ×2 (09:06→21:06)
[2018-10-07] MEDS: CITALOPRAM 40 MG TAB PO SCH (09:07)
[2018-10-07] MEDS: ATORVASTATIN 40 MG TAB PO SCH (09:07)
[2018-10-07] MEDS: SENNA 8.6 MG TAB PO SCH (09:07)
[2018-10-07] MEDS: LISINOPRIL 40 MG TAB PO SCH (09:09)
--- NOTE | 2018-10-07 09:53 | Pharmacy Report ---
Pharmacy Abx Dose Short Note - Date of Service October 07, 2018 - Assessment & Plan Assessment CSF culture growing gram-positive bacili. Suspect Listeria. D/C Vanc, Rocephin, and Acyclovir. ID has added Gentamicin for gram-positive synergy along with Ampicillin (2gm IV Q4H) while admitted. Per ID, patient will need Ampicillin IV x 21days. Plan Gentamicin * Patient is not a candidate for extended-interval dosing. * Dose: 65 mg (1 mg/kg) IV every 8 hours. * Dosage based on adjusted body weight for patients weighing > 120% of ideal body weight. * Trough level ordered for 10/08/18 prior to 3rd dose to assess for accumulation. * Goal trough level for gram positive synergy: < 1 mcg/ml Pharmacy will continue to follow and will adjust dose/frequency as necessary. Thank you.
[2018-10-07] MEDS ORDERED: ASPIRIN 81 MG ECTAB PO SCH (10:00)
[2018-10-07] MEDS: GENTAMICIN SULFATE IV SCH ×2 (10:58→16:24)
[2018-10-07] MEDS: DEXTROSE 5% IV SCH ×2 (10:58→16:24)
[2018-10-07] MEDS: ACETAMINOPHEN 325 MG TAB PO PRN (13:37)
[2018-10-07] MEDS ORDERED: GENTAMICIN SULFATE 100 MG in DEXTROSE 5% 100 ML IV SCH (14:00)
--- NOTE | 2018-10-07 14:30 | Hospitalist Progress Note ---
Date of Service October 07, 2018 Assessment & Plan (1) Sepsis: Sepsis secondary to meningitis -Initially presented to ER early morning of 10/05/18 for headache, chills and neck pain and was initially discharged from ED with Doxycycline for possible Anaplasmosis given low platelets, however patient continued to have headache throughout the day and primary care doctor sent patient back to the ER and lumbar puncture was perform for meningitis -Lumbar puncture results 1936 WBC 80% Neutrophil, glucose 82, protein 304 and patient was started on meningitis antibiotics of IV Vancomycin, Ceftriaxone, ampicillin, acyclovir -on IV decadron as started by admitting hospitalist -the lumbar puncture results with gram positive bacilli and on 10/07/18, Infectious disease recommendations of antibiotic changes for 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 SCDs Full code Patient's daughter Ms. Jesscia Singer, contact #[phone]. Subjective Patient seen and examined and no acute pain reported to medical doctor. she appears comfortable. no chest pain. no shortness of breath. no abdomen pain. she reports she is ambulatory. we had long conversation about retirement IV antibiotics. She was offered the consent form to consider for PICC line. Physical Exam Constitutional: comfortable Eyes: PERRL, conjunctivae normal, anicteric sclerae EOM intact bilaterally ENMT: external ear and nose normal, oropharynx normal Neck: trachea midline, no thyromegaly Respiratory: normal respiratory effort, lungs clear to auscultation Cardiovascular: RRR, no murmur, no edema Gastrointestinal (Abdomen): normal bowel sounds, soft, nontender, no hepatosplenomegaly Musculoskeletal: no cyanosis or clubbing, extremities motor strength 5/5 Head/Neck/Chest: normocephalic and head atraumatic Neurologic: PERRL, EOMI, accommodation nl, no face palsy, no dysarthria CN's II-XI intact bilaterally Psychiatric: A+Ox3, euthymic affect Results & Data Vital Signs (Past 12 Hours) Vital Signs Temp Pulse Resp BP Pulse Ox 10/07/18 07:51 36.9 C 66 18 134/65 92
[2018-10-07] MEDS ORDERED: ALBUTEROL 0.5% NEB SOLN 2.5 MG/0.5 ML VIAL NEB STA (17:46)
[2018-10-07] MEDS ORDERED: FUROSEMIDE 20 MG in SYRINGE 0 ML IV ONE ×2 (17:52→21:00)
--- NOTE | 2018-10-07 17:57 | XRay Report ---
XR chest 1V portable CLINICAL HISTORY: 68 years-old Female presenting with recent chest pain and weakness, rule out infilt rates. TECHNIQUE: Portable upright AP view of the chest was obtained. COMPARISON: 10/05/2018. FINDINGS: Atherosclerosis of the aortic arch. Cardiac silhouette enlarged. Pulmonary vascular prominence. Coars ened lung markings with suspected underlying interlobular septal thickening. Trace right pleural effu vahe. No large pneumothorax. Osseous structures normal. Hiatal hernia may be present. IMPRESSION: 1. Cardiomegaly with volume overload and congestive change. No dank pulmonary edema. Infection is f elt to be less likely. 2. Trace right pleural effusion. 3. Possible hiatal hernia. Electronically signed by: Kayode Rodrigues M.D. 10/07/2018 5:55 PM
[2018-10-07] MEDS: INSULIN GLARGINE SOLOSTAR 100 UNITS/ML 3 ML PEN SQ SCH (21:20)
[2018-10-07] MEDS: LORazepam 0.5 MG TAB PO PRN (21:37)
[2018-10-08] MEDS: DEXTROSE 5% IV SCH ×3 (00:20→16:12)
[2018-10-08] MEDS: GENTAMICIN SULFATE IV SCH ×3 (00:20→16:12)
[2018-10-08] MEDS: AMPICILLIN 2,000 MG in SODIUM CHLOR 0.9% AD-VAN 100 ML IV SCH ×6 (02:16→22:28)
[2018-10-08 07:09] LABS: Mean Corpuscular Hgb Conc 32.7 g/dL (32-36)
[2018-10-08 07:18] LABS: Hematocrit (blood only) 34.2 % (37-47); Hemoglobin 11.2 g/dL (12.0-16.0); Mean Corpuscular Volume 80.9 fL (80-100); RDW Coefficient of Variation 16.4 % (11.5-14.5); RDW Standard Deviation 48.4 fL (36.4-46.3); Red Blood Count 4.23 M/uL (4.2-5.4); White Blood Count 7.62 K/uL (4.8-10.8)
[2018-10-08 07:44] LABS: Platelet Count 133 K/uL (130-400)
[2018-10-08 07:45] LABS: Immature Granulocytes # (auto) 0.01 K/uL (0.00-0.02); Immature Granulocytes % (auto) 0.1 %; Lymphocytes # (auto) 0.77 K/uL (1.2-3.4); Lymphocytes % (auto) 10.1 %; Monocytes # (auto) 0.39 K/uL (0.11-0.59); Monocytes % (auto) 5.1 %; Neutrophils # (auto) 6.45 K/uL (1.4-6.5); Neutrophils % (auto) 84.7 %; Platelet Estimate Normal (Normal)
[2018-10-08 07:51] LABS: Albumin Level 2.6 gm/dl (3.4-5.0); BUN Creatinine Ratio 32.5 (10-20); Calcium 8.3 mg/dl (8.5-10.1); Est GFR (African American) 106.3; Est GFR (Non-African American) 91.7; Magnesium 2.3 mg/dl (1.8-2.4); Potassium 3.6 mmol/L (3.5-5.1)
[2018-10-08 07:54] LABS: Albumin Globulin Ratio 0.7 (0.9-2); Bilirubin,Total 0.4 mg/dl (0.2-1); Globulin 3.6 gm/dl (2.5-4.0); Total Protein 6.2 gm/dl (6.4-8.2)
[2018-10-08] MEDS: FERROUS SULFATE 325 MG TAB PO SCH (08:06)
[2018-10-08] MEDS: DOCUSATE SODIUM 100 MG CAP PO SCH ×2 (08:06→19:55)
[2018-10-08] MEDS: FUROSEMIDE 40 MG TAB PO SCH (08:06)
[2018-10-08] MEDS: MULTIVITAMIN TAB PO SCH (08:06)
[2018-10-08] MEDS: PANTOprazole 40 MG TAB PO SCH ×2 (08:07→19:55)
[2018-10-08] MEDS: INSULIN ASPART 100 UNITS/ML 3 ML PEN SC SCH ×4 (08:07→21:07)
[2018-10-08] MEDS: CITALOPRAM 40 MG TAB PO SCH (08:07)
[2018-10-08] MEDS: ATORVASTATIN 40 MG TAB PO SCH (08:07)
[2018-10-08] MEDS: SENNA 8.6 MG TAB PO SCH (08:08)
[2018-10-08] MEDS: LISINOPRIL 40 MG TAB PO SCH (08:08)
--- NOTE | 2018-10-08 08:27 | Hospitalist Progress Note ---
Date of Service October 08, 2018 Assessment & Plan (1) Sepsis: Sepsis secondary to meningitis -Initially presented to ER early morning of 10/05/18 for headache, chills and neck pain and was initially discharged from ED with Doxycycline for possible Anaplasmosis given low platelets, however patient continued to have headache throughout the day and primary care doctor sent patient back to the ER and lumbar puncture was perform for meningitis -Lumbar puncture results 1936 WBC 80% Neutrophil, glucose 82, protein 304 and patient was started on meningitis antibiotics of IV Vancomycin, Ceftriaxone, ampicillin, acyclovir -on IV decadron as started by admitting hospitalist -the lumbar puncture results with gram positive bacilli and on 10/07/18, Infectious disease recommendations of antibiotic changes for 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 IV ampicillin is continued as 2 grams q4 hours and IV gentamicin added (currently 65 mg IV q8 hours), and other antibiotics and acyclovir have been stopped and to stop the droplet precautions -based on recent infectious disease recommendations, patient to need 21 days total of ampicillin -discussed with patient about PICC line - awaiting patient decision, will also need coordination with case management and drug infusion companies -IV decadron discontinued to prevent fluid retention Fluid retention -update for 10/08/18: patient had shortness of of breath. She was given albuterol nebulizer and Lasix 20 mg x 1 IV. Patient's chest X ray has some congestion likely fluid course yesterday night likely due to IV fluids/IV medications during hospital course. Patient had additional Lasix 20 mg IV x 1. Patient breathing on room air saturating well. We discussed plans about Lasix 40 mg this AM and follow up echocardiogram and Chest X ray Type 2 diabetes mellitus without snf current use of insulin -DM 2, diet-controlled at home -HbA1c 6.7 -has been on sliding scale insulin in the hospital Hypertension -blood pressure controlled -continue lisinopril 40 mg daily Thrombocytopenia -peripheral smear on 10/05/18 does not show anaplasmosis, anaplasmosis ti:ters pending, Lyme negative -follow platelets History TIA as per records -continue statin -hold off further aspirin for now given thrombocytopenia and awaiting patient decision for PICC line mood stable DVT prophylaxis. SCDs Full code Patient's daughter Ms. Jessica Singer, contact #[phone]. Disposition: patient remain's in the hospital on IV antibiotics. patient's daughter Ms. Jessica Singer who expressed dissatisfaction with patient care and she would like to discuss with her mother about considering a different hospitalist physician. will await patient's decision Subjective Yesterday night, patient had shortness of of breath. She was given albuterol nebulizer and Lasix 20 mg x 1 IV. Patient's chest X ray has some congestion l ikely fluid course yesterday night likely due to IV fluids/IV medications during hospital course. Patient had additional Lasix 20 mg IV x 1. Patient breathing on room air saturating well. We discussed plans about Lasix 40 mg this AM and follow up echocardiogram and Chest X ray. Patient did not express concerns or dissatisfaction or concerns. We talked about whether or not she has read the information again about the PICC line consent form and patient reports that she is still thinking about it. Patient breathing comfortably on room air. No shortness of breath. No chest pain. No abdomen pain. no vomiting. no gross head or neck pain Have updated the patient's daughter Ms. Jessica Singer who expressed dissatisfaction with patient care and she would like to discuss with her mother about considering a different hospitalist physician. Physical Exam Constitutional: comfortable Eyes: PERRL, conjunctivae normal, anicteric sclerae EOM intact bilaterally ENMT: external ear and nose normal, oropharynx normal Neck: trachea midline, no thyromegaly Respiratory: normal respiratory effort, lungs clear to auscultation Cardiovascular: RRR, no murmur, no edema Gastrointestinal (Abdomen): normal bowel sounds, soft, nontender, no hepatosplenomegaly Musculoskeletal: no cyanosis or clubbing, extremities motor strength 5/5 Head/Neck/Chest: normocephalic and head atraumatic Neurologic: PERRL, EOMI, accommodation nl, no face palsy, no dysarthria CN's II-XI intact bilaterally Psychiatric: A+Ox3, euthymic affect Results & Data Vital Signs (Past 12 Hours) Vital Signs Temp Pulse Resp BP BP Pulse Ox 10/08/18 07:24 36.7 C 58 L 18 160/66 H 97 10/08/18 00:58 148/68 H 10/07/18 23:20 53 L 19 177/73 H 94 10/07/18 23:00 36.8 C 55 L 19 172/80 H 94
--- NOTE | 2018-10-08 08:49 | Infectious Disease Progress Nt ---
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 will continue amp and gent for now. Follow cultures. Clinically improving, blood cultures negative to date. will need picc line and 21 days totatl ampicillin. continue gent while in hospital. Can stop droplet precautions. Subjective pt tolerating abx, afebrile overnight. blood cultures remain negative, wbc normal. Awaiting ID/sensitivity gpr from CSF culture. Results & Data Vital Signs (Past 12 Hours) Vital Signs Temp Pulse Resp BP BP Pulse Ox 10/08/18 07:24 36.7 C 58 L 18 160/66 H 97 10/08/18 00:58 148/68 H 10/07/18 23:20 53 L 19 177/73 H 94 10/07/18 23:00 36.8 C 55 L 19 172/80 H 94 Laboratory Results Microbiology 10/05/18 17:48 Cerebral Spinal Fluid Gram Stain - Final 10/05/18 17:48 Cerebral Spinal Fluid CSF Culture - Preliminary Listeria monocytogenes 10/05/18 17:16 Blood Aerobic Blood Culture - Preliminary No growth in Aerobic bottle after 48 hours. 10/05/18 17:16 Blood Anaerobic Blood Culture - Preliminary No growth in Anaerobic bottle after 48 hours. 10/05/18 17:16 Blood Aerobic Blood Culture - Preliminary No growth in Aerobic bottle after 48 hours. 10/05/18 17:16 Blood Anaerobic Blood Culture - Preliminary No growth in Anaerobic bottle after 48 hours.
[2018-10-08] MEDS ORDERED: FUROSEMIDE 20 MG TAB PO SCH (09:00)
--- NOTE | 2018-10-08 09:09 | Pharmacy Report ---
Pharmacy Abx Dose Short Note - Date of Service October 08, 2018 - Assessment & Plan Assessment 68 year old F receiving Gentamicin 65mg Q8H for treatment of listeria meningitis Day # 2 of antimicrobial therapy. CSF cultures growing gram + bacilli have resulted listeria monocytogenes, sensitive to ampicillin and penicillin. WBC normal, afebrile x24 hours. Laboratory Tests 10/08/18 00:28 Gentamicin Trough 0.50 Plan Gentamicin * Trough level of 0.5 mcg/mL is therapeutic. * Continue dose of 65 mg IV every 8 hours * Goal trough level for gram positive synergy is less than 1 mcg/mL * If patient remains admitted and on dual therapy, will check another trough in a week. If patient begins to display any symptoms of aminoglycoside toxicity will check a peak level (goal would be 3-5 mcg/ml). Pharmacy will continue to follow and will adjust dose/frequency as necessary. Thank you.
[2018-10-08] MEDS ORDERED: ALUMINUM/MAGNESIUM SUSP 30 ML UDC PO STA (10:56)
[2018-10-08] MEDS ORDERED: NITROGLYCERIN SL 0.4 MG/TAB TAB SL STA (11:01)
[2018-10-08] MEDS ORDERED: MoRPHine SULFATE 2 MG/ML CARP IV STA (11:01)
[2018-10-08] MEDS ORDERED: XOPENEX/ATROVENT 1.25mg/0.5MG NEB COMBO NEB PRN (11:38)
[2018-10-08] MEDS ORDERED: ALUMINUM/MAGNESIUM SUSP 30 ML UDC PO PRN (11:39)
[2018-10-08] MEDS ORDERED: LEVALBUTEROL 1.25MG/0.5ML NEB INH PRN (11:45)
[2018-10-08] MEDS ORDERED: IPRATROPIUM BROMIDE NEB SOLN 0.02% 2.5 ML VIAL INH PRN (11:45)
--- NOTE | 2018-10-08 15:04 | XRay Report ---
TWO VIEW CHEST CLINICAL HISTORY: Atypical chest pain. FINDINGS: PA and lateral chest radiographs are compared to study dated 10/07/2018. The heart is top no rmal for projection. There is a large hiatal hernia. The mediastinal contour is within normal limits. Patchy airspace consolidation is seen at both lung bases and there are small pleural effusions. Ther e is no pneumothorax. The skeletal structures are osteopenic. The bony thorax appears intact. IMPRESSION: 1. There are small pleural effusions with bibasilar consolidation. Correlate clinically for evidence of pneumonia/aspiration pneumonitis. Radiographic follow-up to resolution is recommended. 2. Large hiatal hernia. Electronically signed by: Lee Morrell M.D. 10/08/2018 3:02 PM
[2018-10-08] MEDS: OXYCODONE HCL IR 5 MG TAB (IMMEDIATE RELEASE) PO PRN (19:55)
[2018-10-08] MEDS: INSULIN GLARGINE SOLOSTAR 100 UNITS/ML 3 ML PEN SQ SCH (21:06)
[2018-10-08] MEDS: LORazepam 0.5 MG TAB PO PRN (22:28)
[2018-10-09] MEDS: GENTAMICIN SULFATE IV SCH ×3 (00:34→17:54)
[2018-10-09] MEDS: DEXTROSE 5% IV SCH ×3 (00:34→17:54)
[2018-10-09] MEDS: AMPICILLIN 2,000 MG in SODIUM CHLOR 0.9% AD-VAN 100 ML IV SCH ×6 (03:25→23:51)
[2018-10-09] MEDS ORDERED: OXYCODONE/ACETAMINOPHEN 5mg/325mg TAB PO PRN (03:26)
[2018-10-09] MEDS: HYDROmorphone INJ 0.5 MG/0.5 ML SYR IV PRN ×2 (03:39→11:08)
[2018-10-09 08:32] LABS: Creatinine Clr Calc Pharmacy 91.3 ml/min; Est GFR (Non-African American) 93.1
[2018-10-09] MEDS: ATORVASTATIN 40 MG TAB PO SCH (09:25)
[2018-10-09] MEDS: DOCUSATE SODIUM 100 MG CAP PO SCH ×2 (09:25→21:32)
[2018-10-09] MEDS: CITALOPRAM 40 MG TAB PO SCH (09:25)
[2018-10-09] MEDS: FERROUS SULFATE 325 MG TAB PO SCH (09:25)
[2018-10-09] MEDS: PANTOprazole 40 MG TAB PO SCH ×2 (09:26→21:32)
[2018-10-09] MEDS: MULTIVITAMIN TAB PO SCH (09:26)
[2018-10-09] MEDS: LISINOPRIL 40 MG TAB PO SCH (09:27)
[2018-10-09] MEDS: SENNA 8.6 MG TAB PO SCH (09:27)
[2018-10-09] MEDS: FUROSEMIDE 40 MG TAB PO SCH (09:28)
[2018-10-09] MEDS: INSULIN ASPART 100 UNITS/ML 3 ML PEN SC SCH ×4 (09:31→21:31)
--- NOTE | 2018-10-09 10:53 | Infectious Disease Progress Nt ---
Date of Service October 09, 2018 Assessment & Plan (1) Meningitis: Confirmed Listeria meningitis. will continue amp and gent for now. Follow cultures. Clinically improving, blood cultures negative to date. will need picc line and 21 days total ampicillin - ampicillin was started on 10/06 - stop date 10/27. continue gent while in hospital. Pt now states she would like to go to rehab upon hosptial d/c. No contraindication to d/c from ID standpoint, will follow post d/c. no need for isolation if patient is d/c to rehab. Subjective pt seen in followup, family at bedside, doing well. states some back pain but feels due to hospital bed, no mcmullen, no f/c. tolerating abx. Overall feeling significantly better. Remains on gent and amp, tolerating well. blood culture negative, csf culture growing Listeria, amp sensitive. States today she would like to go to rehab prior to returning home. no abd pain, no n/v/d, eating well. no cp, sob, cough, yu. Review of Systems Review of Systems: All systems reviewed & are unremarkable except as noted in HPI & below Physical Exam Constitutional: WD/WN, vitals as above well developed and well nourished; no acute distress, not ill appearing and no altered mental status Eyes: PERRL, conjunctivae normal, anicteric sclerae ENMT: external ear and nose normal, oropharynx normal Neck: normal visual inspection Respiratory: normal respiratory effort, lungs clear to auscultation Cardiovascular: RRR, no murmur, no edema Gastrointestinal (Abdomen): normal bowel sounds, soft, nontender, no hepatosplenomegaly Musculoskeletal: no cyanosis or clubbing, extremities motor strength 5/5 H ead/Neck/Chest: neck supple; full ROM of neck Skin: no rashes, warm and dry Psychiatric: A+Ox3, euthymic affect Results & Data Vital Signs (Past 12 Hours) Vital Signs Temp Pulse Resp BP BP Pulse Ox 10/09/18 07:47 36.9 C 53 L 16 156/71 H 92 10/08/18 23:00 37.3 C 79 18 160/76 H 91 Laboratory Results Microbiology 10/05/18 17:48 Cerebral Spinal Fluid Gram Stain - Final 10/05/18 17:48 Cerebral Spinal Fluid CSF Culture - Final Listeria monocytogenes 10/05/18 17:16 Blood Aerobic Blood Culture - Preliminary No growth in Aerobic bottle after 48 hours. 10/05/18 17:16 Blood Anaerobic Blood Culture - Preliminary No growth in Anaerobic bottle after 48 hours. 10/05/18 17:16 Blood Aerobic Blood Culture - Preliminary No growth in Aerobic bottle after 48 hours. 10/05/18 17:16 Blood Anaerobic Blood Culture - Preliminary No growth in Anaerobic bottle after 48 hours.
--- NOTE | 2018-10-09 13:12 | Hospitalist Progress Note ---
Date of Service October 09, 2018 Assessment & Plan (1) Sepsis: Sepsis secondary to Listeria meningitis-possible secondary ingestion of contaminated fresh fruits (farm picked blueberry) Report of ingestion of raw vegetables unpasteurized milk or unpasteurized daily products -Initially presented to ER early morning of 10/05/18 for headache, chills and neck pain and was initially discharged from ED with Doxycycline for possible Anaplasmosis given low platelets, however patient continued to have headache throughout the day and primary care doctor sent patient back to the ER and lumbar puncture was perform for meningitis -Lumbar puncture results 193 WBC 80% Neutrophil, glucose 82, protein 304 - suggestive of bacterial meningitis CSF culture: Growing Listeria sensitive to ampicillin and penicillin Appreciate input from IV IV ampicillin is continued as 2 grams q4 hours and IV g entamicin added (currently 65 mg IV q8 hours), - patient to need 21 days total of IV ampicillin /stay of treatment 10/06/2018end date 10/27/2018 PICC line placed Patient is interested to go to acute rehab, for IV antibiotic infusion:( requires every 4 hours IV antibiotic for more than 2 weeks which is not possible to administer at home) Patient also reports of generalized deconditioning, low back pain causing difficult in performing ADLs PT OT evaluation requested Type 2 diabetes mellitus without fdc current use of insulin -DM 2, diet-controlled at home -HbA1c 6.7 -has been on sliding scale insulin in the hospital Hypertension -blood pressure controlled -continue lisinopril 40 mg daily Thrombocytopenia Possible secondary to sepsis/tickborne disease -Resolved, platelet count improved/normalized -peripheral smear on 10/05/18 does not show anaplasmosis, Lyme negative History TIA as per records -continue statin -Aspirin resumed as platelet count normalized (2) Back pain without radiculopathy: She reports of low back pain and tailbone area, worse with walking, sitting' Gets transient relief on the right side and bending at a certain position Patient had a CT of cervical spine: No history of trauma or back injury Denies of any radiation pain down to lower thigh area no bowel or bladder incontinence Order for x-ray of lumbar spine and pelvis Lidoderm patch, K pad ordered for PT OT Spinal orthopedics consult with Dr. Durant DVT prophylaxis. SCDs Full code Patient's daughter Ms. Jessica Singer, contact #[phone].-Update given Disposition: Referral made to acute rehab [facility], patient is accepted Possible transfer to [facility] after orthopedics evaluation today Subjective Patient reports of no headache, no blurred vision, no fever or chills Ambulating independently Complains of low back pain/tailbone pain, gets relief only after lying on the side in a certain position Pain is worse with walking, sitting down No bladder or bowel incontinence Patient reports that she had this discomfort for past 2 to 3 weeks got worse since admission to hospital Patient had a CT of lumbar spine: Which showed has significant DJD with disc space narrowing on L4-L5 and L5-S1 area Refer x-ray of pelvis and lumbar spine Pain controlled with heating pad and Lidoderm patch We will consult orthopedics for further evaluation Physical Exam Constitutional: WD/WN, vitals as above no acute distress Eyes: PERRL, conjunctivae normal, anicteric sclerae ENMT: external ear and nose normal, oropharynx normal Neck: trachea midline, no thyromegaly Respiratory: normal respiratory effort, lungs clear to auscultation no cough Cardiovascular: RRR, no murmur, no edema Gastrointestinal (Abdomen): normal bowel sounds, soft, nontender, no hepatosplenomegaly Musculoskeletal: no cyanosis or clubbing, extremities motor strength 5/5 Skin: no rashes, warm and dry Neurologic: PERRL, EOMI, accommodation nl, no face palsy, no dysarthria Psychiatric: A+Ox3, euthymic affect Results & Data Vital Signs (Past 12 Hours) Vital Signs Temp Pulse Resp BP Pulse Ox 10/09/18 07:47 36.9 C 53 L 16 156/71 H 92
[2018-10-09] MEDS: LIDOCAINE 5% 1 PATCH TD SCH (14:29)
--- NOTE | 2018-10-09 15:45 | XRay Report ---
LUMBAR SPINE 3 VIEWS CLINICAL HISTORY: Low back pain. FINDINGS: AP, lateral, and cone-down views of the lumbar spine are correlated with lumbar spine CT d ated 06/13/2018. The skeletal structures are osteopenic. There is no radiographic evidence of fracture or malalignment. Vertebral body height and alignment are maintained. The transverse and spinous proc esses are intact. Small anterior and lateral marginal osteophytes are seen throughout. Mild facet art hropathy is noted in the lower lumbar region. There is no evidence of spondylolysis. The intervertebr al disc spaces are well-maintained. The visualized bony pelvis appears intact. Mild sclerotic change is noted in the sacroiliac joints. There is a nonobstructed abdominal bowel gas pattern. Moderate con stipation is observed. Atherosclerotic calcification is noted in the abdominal aorta. IMPRESSION: 1. No acute bony abnormality is identified. 2. Osteopenia and mild spondylotic change as above. Electronically signed by: Lee Morrell M.D. 10/09/2018 3:44 PM
--- NOTE | 2018-10-09 15:48 | XRay Report ---
XR pelvis min 3V CLINICAL HISTORY: low back pain pain COMPARISON: None. DISCUSSION: The bones and joint spaces appear intact. There is no evidence of fracture, dislocation o r bony disease. There is no evidence for soft tissue swelling. IMPRESSION: Negative study. The above report was generated using voice recognition software. It may contain grammatical, syntax or spelling errors. Electronically signed by: Alexander Thorpe M.D. 10/09/2018 3:46 PM
[2018-10-09] MEDS: INSULIN GLARGINE SOLOSTAR 100 UNITS/ML 3 ML PEN SQ SCH (21:31)
[2018-10-09 22:09] LABS: HSV Type 1 DNA Not Detected (Not Detected); HSV Type 1&2 DNA Source CSF; HSV Type 2 DNA Not Detected (Not Detected)
[2018-10-09] MEDS: LORazepam 0.5 MG TAB PO PRN (23:58)
[2018-10-10] MEDS: GENTAMICIN SULFATE IV SCH ×3 (02:10→15:54)
[2018-10-10] MEDS: DEXTROSE 5% IV SCH ×3 (02:10→15:54)
[2018-10-10] MEDS: AMPICILLIN 2,000 MG in SODIUM CHLOR 0.9% AD-VAN 100 ML IV SCH ×4 (02:52→14:45)
[2018-10-10 06:18] LABS: Hematocrit (blood only) 38.5 % (37-47); Hemoglobin 13.2 g/dL (12.0-16.0); Mean Corpuscular Hgb Conc 34.3 g/dL (32-36); Mean Corpuscular Volume 78.3 fL (80-100); Mean Platelet Volume 10.5 fL (7.4-10.4); Platelet Count 187 K/uL (130-400); RDW Coefficient of Variation 15.4 % (11.5-14.5); RDW Standard Deviation 43.9 fL (36.4-46.3); Red Blood Count 4.92 M/uL (4.2-5.4); White Blood Count 8.23 K/uL (4.8-10.8)
[2018-10-10 06:44] LABS: Creatinine Clr Calc Pharmacy 91.5 ml/min; Est GFR (African American) 108.5; Est GFR (Non-African American) 93.7
[2018-10-10] MEDS: DOCUSATE SODIUM 100 MG CAP PO SCH (08:09)
[2018-10-10] MEDS: LISINOPRIL 40 MG TAB PO SCH (08:09)
[2018-10-10] MEDS: PANTOprazole 40 MG TAB PO SCH (08:09)
[2018-10-10] MEDS: SENNA 8.6 MG TAB PO SCH (08:10)
[2018-10-10] MEDS: CITALOPRAM 40 MG TAB PO SCH (08:10)
[2018-10-10] MEDS: ATORVASTATIN 40 MG TAB PO SCH (08:10)
[2018-10-10] MEDS: FUROSEMIDE 40 MG TAB PO SCH (08:10)
[2018-10-10] MEDS: MULTIVITAMIN TAB PO SCH (08:10)
[2018-10-10] MEDS: FERROUS SULFATE 325 MG TAB PO SCH (08:11)
[2018-10-10] MEDS: LIDOCAINE 5% 1 PATCH TD SCH (08:11)
[2018-10-10] MEDS: INSULIN ASPART 100 UNITS/ML 3 ML PEN SC SCH ×3 (08:14→17:16)
--- NOTE | 2018-10-10 09:44 | Orthopedic Consultation ---
Date of Consultation October 10, 2018 Assessment & Plan (1) Back pain without radiculopathy: Patient's x-rays demonstrate no evidence of acute fracture or alignment issues. Her exam is fairly benign. I strongly suspect symptoms are more disuse in nature. Encouraged her to begin activity and ambulation as tolerated. See her as needed. Present on Admission?: Yes History of Present Illness Reason for Consultation: Back pain Attending Physician: Lexis Andre MD History of Present Illness This is a 68-year-old female that presents with lumbosacral back pain. She has been quite ill and bedbound for the past several days. She notes discomfort in the lumbosacral junction. It is quite tolerable. She denies any component of leg pain numbness or tingling. She denies any recent trauma fall or event. Allergies Allergy/AdvReac Type Severity Reaction Status Date / Time Macrolide Antibiotics Allergy Mild abdominal Verified 10/05/18 18:38 pains Sulfa (Sulfonamide Allergy Mild abdominal Verified 10/05/18 18:38 Antibiotics) pains erythromycin base AdvReac Intermediate VOMITING Verified 10/05/18 18:38 Home Medications Home Medications Medication Instructions Recorded Confirmed Type citalopram [Celexa] 40 mg PO QAM 06/13/18 10/05/18 History lisinopril [Zestril] 40 mg PO QAM 06/13/18 10/05/18 History multivitamin 1 tab PO QAM 06/13/18 10/05/18 History calcium carbonate-vitamin D3 2 tab PO QAM 06/20/18 10/05/18 History [Calcium 600 + D(3)] ferrous sulfate 325 mg PO QAM 06/20/18 10/05/18 History aspirin 81 mg PO QAM 07/20/18 10/05/18 History atorvastatin 40 mg PO QAM 07/20/18 10/05/18 History omeprazole 20 mg PO BID 07/20/18 10/05/18 History docusate sodium [Colace] 100 mg PO BID #60 cap 10/05/18 10/05/18 Rx oxycodone 5 mg PO DAILY #14 tab 10/05/18 10/05/18 Rx sennosides [Senokot] 8.6 mg PO DAILY #30 tab 10/05/18 10/05/18 Rx Patient History Medical History Hypertension (Chronic) IBS (irritable bowel syndrome) (Chronic) History of TIA (transient ischemic attack) (Resolved) 2000--no deficits Anemia Depression Diabetes mellitus, type 2 diet controlled Former smoker GERD (gastroesophageal reflux disease) Kidney stones Surgical History History of colonoscopy History of detached retina repair History of dilatation and curettage History of esophagogastroduodenoscopy (EGD) History of hysterectomy with unilateral oophorectomy History of tooth extraction some upper teeth History of wisdom tooth extraction Family History Uncle Family history of malignant hyperthermia maternal uncle Mother Family history of reaction to anesthesia "quit breathing after major back surgery" Father Family history of diabetes mellitus Grandmother (Paternal) Family history of diabetes mellitus Grandfather (Paternal) Family history of diabetes mellitus Uncle Family history of diabetes mellitus Aunt Family history of diabetes mellitus Brother Family history of diabetes mellitus Social History Preferred Language: Spanish Communication Ability: Effective Beliefs That Will Affect Care: None Current Living Situation: Spouse Current Living Situation Comment: Lives with Other Information That Helps Us Care for You: No Feels Safe at Home: Yes Smoking Status: Never smoker Second Hand Exposure: No Hx Alcohol Use: No Hx Substance Use: No Physical Exam Physical Exam: Patient is alert and oriented Kendal cooperative. She is able to roll over in bed without any antalgia. She has no pain to palpation or percussion of the thoracolumbar junction or along the bilateral SI joints. She is neurologically intact testing of bilateral extremities. Results & Data Vital Signs (Past 12 Hours) Vital Signs Temp Pulse Resp BP BP Pulse Ox 10/10/18 07:19 37.7 C H 73 17 164/92 H 95 10/09/18 23:52 37.4 C 70 18 152/79 H 93
--- NOTE | 2018-10-10 12:53 | Hospitalist Progress Note ---
Date of Service October 10, 2018 Assessment & Plan (1) Sepsis: Resolved, patient is afebrile, no headache no chills no neck pain Started on IV ampicillin tolerating well Presented 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-possible secondary ingestion of contaminated fresh fruits (farm picked blueberry) Report of ingestion of raw vegetables unpasteurized milk or unpasteurized daily products -Initially presented to ER early morning of 10/05/18 for headache, chills and neck pain and was initially discharged from ED with Doxycycline for possible Anaplasmosis given low platelets, however patient continued to have headache throughout the day and primary care doctor sent patient back to the ER and lumbar puncture was perform for meningitis -Lumbar puncture results 1936 WBC 80% Neutrophil, glucose 82, protein 304 - suggestive of bacterial meningitis CSF culture: Growing Listeria sensitive to ampicillin and penicillin Appreciate input from IV ampicillin is continued as 2 grams q4 hours and IV gentamicin added (currently 65 mg IV q8 hours), - patient to total 21 days total of IV ampicillin /stay of treatment 10/06/2018end date 10/27/2018 PICC line placed-for long-term IV access Patient is interested to go to acute rehab, for IV antibiotic infusion:( requires every 4 hours IV antibiotic for more than 2 weeks which is not possible to administer at home) Patient also reports of generalized deconditioning, low back pain causing difficult in performing ADLs Patient is accepted for acute rehab at [facility], stable to be discharged to rehab today Type 2 diabetes mellitus without prop setter current use of insulin -DM 2, diet-controlled at home -HbA1c 6.7 -has been on sliding scale insulin in the hospital Hypertension -blood pressure controlled -continue lisinopril 40 mg daily Thrombocytopenia Possible secondary to sepsis/tickborne disease -Resolved, platelet count improved/normalized -peripheral smear on 10/05/18 does not show anaplasmosis, Lyme negative History TIA as per records -continue statin -Aspirin resumed as platelet count normalized (2) Back pain without radiculopathy: Back pain has resolved, no problem with ambulation today History of low back pain and tailbone area, worse with walking, sitting' Gets transient relief on the right side and bending at a certain position Patient had a CT of cervical spine: No history of trauma or back injury Denies of any radiation pain down to lower thigh area no bowel or bladder incontinence x-ray of lumbar spine and pelvis: Shows no acute fracture Spinal orthopedics consult with Dr. Durant-appreciated, no acute orthopedics issues, patient's low back pain possibly secondary to positional, being in bed for acute illness Recommend increase activity as tolerated PT OT Back pain has markedly improved as per patient today DVT prophylaxis. SCDs Full code Disposition: Referral made to acute rehab [facility], patient is accepted Stable to transfer to [facility] today Subjective No complaint of back pain, No headache, no neck pain no fever chills Stable to be transferred to rehab today Physical Exam Constitutional: WD/WN, vitals as above no acute distress Eyes: PERRL, conjunctivae normal, anicteric sclerae ENMT: external ear and nose normal, oropharynx normal Neck: trachea midline, no thyromegaly Respiratory: normal respiratory effort, lungs clear to auscultation no cough Cardiovascular: RRR, no murmur, no edema Gastrointestinal (Abdomen): normal bowel sounds, soft, nontender, no hepatosplenomegaly Musculoskeletal: no cyanosis or clubbing, extremities motor strength 5/5 Skin: no rashes, warm and dry Neurologic: PERRL, EOMI, accommodation nl, no face palsy, no dysarthria Psychiatric: A+Ox3, euthymic affect Results & Data Vital Signs (Past 12 Hours) Vital Signs Temp Pulse Resp BP Pulse Ox 10/10/18 07:19 37.7 C H 73 17 164/92 H 95
--- NOTE | 2018-10-10 13:02 | Discharge Summary ---
Date of Service October 10, 2018 Admission HPI Per Admitting Provider History obtained from patient, family, and records. Medical history significant for hypertension, hyperlipidemia, mood disorder, DM 2, diet-controlled, history of TIA as per records Yesterday, patient noted achy headache, neck/spine pain. Patient had chills at home. No rashes noted. Nausea, emesis symptoms. No chest pain, no S OB. Patient seen at the emergency room this morning. Patient noted to be thrombocytopenic. Unremarkable imaging. Tick labwork drawn. Patient prescribed Doxycycline for possible tickborne infection. Patient sent back to the ER by PCP due to concerns for TECHNICAL SERVICE REPRESENTATIVE infection. Lumbar puncture done at the ER. Patient given IV Vancomycin, Ceftriaxone for possible bacterial meningitis. No known sick contacts, no previous history of meningitis. 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/ Discharge Exam Constitutional WD/WN, vitals as above no acute distress Eyes PERRL, conjunctivae normal, anicteric sclerae ENMT external ear and nose normal, oropharynx normal Neck trachea midline, no thyromegaly Respiratory normal respiratory effort, lungs clear to auscultation no cough Cardiovascular RRR, no murmur, no edema Gastrointestinal (Abdomen) normal bowel sounds, soft, nontender, no hepatosplenomegaly Musculoskeletal no cyanosis or clubbing, extremities motor strength 5/5 Skin no rashes, warm and dry Neurologic PERRL, EOMI, accommodation nl, no face palsy, no dysarthria Psychiatric A+Ox3, euthymic affect Discharge Data Allergies Allergy/AdvReac Type Severity Reaction Status Date / Time Macrolide Antibiotics Allergy Mild abdominal Verified 10/05/18 18:38 pains Sulfa (Sulfonamide Allergy Mild abdominal Verified 10/05/18 18:38 Antibiotics) pains erythromycin base AdvReac Intermediate VOMITING Verified 10/05/18 18:38 Consultations 10/05/18 19:41 ED Decision to Admit Stat 10/06/18 00:11 Consult Infectious Diseases Routine 10/09/18 13:25 Consult Orthopedic Surgery Routine Hospital Course (1) Sepsis: Resolved, patient is afebrile, no headache no chills no neck pain Started on IV ampicillin tolerating well Presented 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-possible secondary ingestion of contaminated fresh fruits (farm picked blueberry) Report of ingestion of raw vegetables unpasteurized milk or unpasteurized daily products -Initially presented to ER early morning of 10/05/18 for headache, chills and neck pain and was initially discharged from ED with Doxycycline for possible Anaplasmosis given low platelets, however patient continued to have headache throughout the day and primary care doctor sent patient back to the ER and lumbar puncture was perform for meningitis -Lumbar puncture results 193 WBC 80% Neutrophil, glucose 82, protein 304 - suggestive of bacterial meningitis CSF culture: Growing Listeria sensitive to ampicillin and penicillin Appreciate input from IV ampicillin is continued as 2 grams q4 hours and IV gentamicin added (currently 65 mg IV q8 hours), - patient to total 21 days total of IV ampicillin /stay of treatment 10/06/2018end date 10/27/2018 PICC line placed-for long-term IV access Patient is interested to go to acute rehab, for IV antibiotic infusion:( requires every 4 hours IV antibiotic for more than 2 weeks which is not possible to administer at home) Patient also reports of generalized deconditioning, low back pain causing difficult in performing ADLs Patient is accepted for acute rehab at [facility], stable to be discharged to rehab today Type 2 diabetes mellitus without intermediate accountant current use of insulin -DM 2, diet-controlled at home -HbA1c 6.7 -has been on sliding scale insulin in the hospital Hypertension -blood pressure controlled -continue lisinopril 40 mg daily Thrombocytopenia Possible secondary to sepsis/tickborne disease -Resolved, platelet count improved/normalized -peripheral smear on 10/05/18 does not show anaplasmosis, Lyme negative History TIA as per records -continue statin -Aspirin resumed as platelet count normalized (2) Back pain without radiculopathy: Back pain has resolved, no problem with ambulation today History of low back pain and tailbone area, worse with walking, sitting' Gets transient relief on the right side and bending at a certain position Patient had a CT of cervical spine: No history of trauma or back injury Denies of any radiation pain down to lower thigh area no bowel or bladder incontinence x-ray of lumbar spine and pelvis: Shows no acute fracture Spinal orthopedics consult with Dr. Durant-appreciated, no acute orthopedics issues, patient's low back pain possibly secondary to positional, being in bed for acute illness Recommend increase activity as tolerated PT OT Back pain has markedly improved as per patient today DVT prophylaxis. SCDs Full code Disposition: Referral made to acute rehab [facility], patient is accepted Stable to transfer to [facility] today Total Time Total Time Spent Total Time Spent (In Minutes): Approximately 45 minutes Total Time Includes: Examination of the Patient, Discharge Planning and Medication Reconciliation Discharge Plan Discharge Items Patient Disposition: Transfer Inpatient Rehab Fac Reason For Visit: SEPSIS Discharge Diagnosis: Sepsis secondary to meningitis, thrombocytopenia-resolved , Type 2 diabetes mellitus without care home current use of insulin, hypertension Discharge Goals: Decrease discomfort, Diagnostic testing and Therapeutic i ntervention Activity: Resume your previous activity Non-emergency contact: Primary Care Provider Call non-emergency contact if: you have any medication questions Follow-up/Referrals: Ian Durant DO [Surgeon] - (IN 2-3 WEEKS FOR LOW BACK PAIN ) Aleja Godoy MD [Primary Care Provider] - Diet: Carb Consistent or DM2 and Heart Healthy Addtl Provider Instructions: 21 days total ampicillin - ampicillin was started on 10/06 - stop date 10/27/2018 - Total 17 more days of treatment please add probiotics /lactobacillius for care home Antibiotic use Prescriptions: New Lactinex 100 million cell granules in packet 1 pkt PO QID 30 Days Qty: 10 RF: 0 aspirin [Ecotrin Low Strength] 81 mg Tablet,Delayed Release (Dr/Ec) 81 mg PO QAM 30 Days Qty: 30 RF: 0 ampicillin sodium 2 gram recon soln 2 gm IV Q4H 17 Days Qty: 17 RF: 0 Continued oxycodone 5 mg tablet 5 mg PO DAILY Qty: 14 RF: 0 sennosides [Senokot] 8.6 mg tablet 8.6 mg PO DAILY Qty: 30 RF: 0 docusate sodium [Colace] 100 mg capsule 100 mg PO BID Qty: 60 RF: 0 lisinopril [Zestril] 40 mg tablet 40 mg PO QAM RF: 0 citalopram [Celexa] 40 mg tablet 40 mg PO QAM RF: 0 multivitamin Tablet 1 tab PO QAM RF: 0 calcium carbonate-vitamin D3 [Calcium 600 + D(3)] 600 mg(1,500mg) -200 unit Ta blet 2 tab PO QAM RF: 0 ferrous sulfate 325 mg (65 mg iron) Tablet 325 mg PO QAM RF: 0 atorvastatin 40 mg Tablet 40 mg PO QAM RF: 0 omeprazole 20 mg Tablet,Delayed Release (Dr/Ec) 20 mg PO BID RF: 0 Discontinued aspirin 81 mg Tablet,Delayed Release (Dr/Ec) 81 mg PO QAM RF: 0 Stand-Alone Forms: [facility] Discharge Orders: Discharge Order (Routine); Ordered 10/10/18 Ordered By: Lexis Andre Skilled Items Patient informed of condition?: Yes DNR: No Discharge Level of Care: Acute rehab Communicable Disease: No Discharge Prognosis: Stable Admission Data Admit Date/Time: 10/05/18 21:59 Attending Provider: Lexis Andre Admit Provider: Donavan Wan Primary Care Provider: Aleja Godoy Other Providers: Donavan Wan ; Saroj Yang ; Ian Durant Service: Medical
[2018-10-10] MEDS ORDERED: Nursing to Pharmacy Communication ONE (15:52)
== END 2018-10-10 17:45 | DRG 872 ==
LOC: ED 15:55 → 2W 21:59 → SUATTDRO 21:59 → 2W 23:26
DX: K58.9 Irritable bowel syndrome, unspecified; A32.11 Listerial meningitis; A32.7 Listerial sepsis; Z79.82 Long term (current) use of aspirin; E11.65 Type 2 diabetes mellitus with hyperglycemia; D69.59 Other secondary thrombocytopenia; R51 Headache; M54.9 Dorsalgia, unspecified; K21.9 Gastro-esophageal reflux disease without esophagitis; Z87.891 Personal history of nicotine dependence; Z83.3 Family history of diabetes mellitus; I10 Essential (primary) hypertension; Z79.899 Other long term (current) drug therapy; F32.9 Major depressive disorder, single episode, unspecified; Z82.49 Family history of ischemic heart disease and other diseases of the circulatory system; Z88.2 Allergy status to sulfonamides; X58.XXXA Exposure to other specified factors, initial encounter; S32.10XA Unspecified fracture of sacrum, initial encounter for closed fracture; Z88.1 Allergy status to other antibiotic agents

== ENCOUNTER 2019-08-09 20:21 | Inpatient (IN) ==
[2019-08-09] MEDS ORDERED: SODIUM CHLORIDE 0.9% 1000ML 1,000 ML IV ONE (20:44)
[2019-08-09] MEDS ORDERED: ACETAMINOPHEN 325 MG TAB PO STA (20:53)
[2019-08-09] MEDS ORDERED: cefTRIAXone SODIUM 2,000 MG/70 ML BAG IV STA (20:53)
[2019-08-09] MEDS ORDERED: SODIUM CHLORIDE 0.9% 1000ML 2,000 ML IV ONE (20:53)
--- NOTE | 2019-08-09 20:59 | Emergency Department Note ---
Impression & Plan Sepsis, Thrombocytopenia, Fever, Acute UTI ED Provider Note NAME: KATHERINE RICHEY AGE: 69 SEX: F : 1950 ARRIVES VIA: Walk-In INFORMANT: Patient ED PROVIDER(S): Eduard Live DO CHIEF COMPLAINT: Fever, chills HPI: Patient is a 69-year-old female who presents the ER for diffuse myalgias and arthralgias associated with fever. Everything started this past Tuesday. Patient notes that on Tuesday she has had the myalgias and arthralgias associated with chills, headache as well as dysuria. She notes that she normally urinates very frequently but she has been having burning with HPV since then. She also notes that after she pees she feels like she has to go again. She notes that she does have a history of meningitis. This was about a year ago. She notes that this does feel somewhat similar but not exactly the same. No neck stiffness but she has muscle ache in her neck as she does throughout her entire body. Headache is on top of her head and described as a 6 out of 10. She took some sinus medication and did help it did feel better. She notes this does feel like sinus pressure. Denies any cough or fevers. No chest pain. No belly pain. ROS: See above HPI for pertinent positives & negatives. A total of 10 systems reviewed and were otherwise negative. PAST MEDICAL HISTORY:See Below PAST SURGICAL HISTORY:See Below FAMILY HISTORY:See Below SOCIAL HISTORY:See Below HOME MEDICATIONS:See Below ALLERGIES:See Below VITALS:See Below PHYSICAL EXAMINATION: GENERAL: Sitting up in bed, alert, well appearing, well nourished, no distress, non-toxic EYE EXAM: normal conjunctiva. PERRL and EOM's grossly intact. OROPHARYNX: no exudate, no erythema, lips, buccal mucosa, and tongue normal and mucous membranes are moist NECK: supple, no nuchal rigidity, no adenopathy, non-tender LUNGS: Clear to auscultation. Normal chest wall mechanics HEART: no murmurs, S1 normal and S2 normal ABDOMEN: abdomen soft, non-tender, normo-active bowel sounds, no masses, no rebound or guarding. BACK: Back is symmetrical on inspection and there is no deformity, no midline tenderness, no CVA tenderness. SKIN: no rashes and no bruising UPPER EXTREMITIES: upper extremities are grossly normal. LOWER EXTREMITIES: No pitting edema. NEURO EXAM: Normal sensorium, cranial nerves II-XII grossly intact, normal speech, no gross weakness of arms, no gross weakness of legs. MEDICAL DECISION MAKING: Patient is a 69-year-old female who presents the ER for fever, headache, myalgias and arthralgias along with neck pain and dysuria which all started this past Tuesday. Upon presentation to the ER patient was found to be febrile and tachycardic. IV was established blood work was obtained showed no significant leukocytosis and a mild anemia 11.9 thousand as well as a mild thrombocytopenia. INR unremarkable. BMP with LFTs bilirubin troponin and lactic acid was normal. UA shows hematuria, leukocytes, white cells and bacteria consistent with a clear UTI. Influenza was negative. Patient was are given 2 g of Rocephin along with 2 L IV fluids. She was updated bedside. She did complain of some mild back pain but notes is mainly in her upper back. She had no CVA tenderness. Do not feel this consistent with pyelonephritis. Not consistent with meningitis as she does have a headache and fever but I do believe that this most consistent with urosepsis. Patient was updated bedside. Discussed with the hospitalist for observation. Triage Nursing notes reviewed. Prior medical records reviewed Vital Signs: reviewed and remarkable for febrile and tachycardic Differential diagnosis: Differential diagnosis includes etiologies such as sepsis, UTI, pneumonia, metabolic, electrolyte abnormalities, cardiac sources, intracerebral event, toxicologic, neurological, as well as others were entertained. ER treatment provided: See below Diagnostics interpreted by me: ECG: Sinus rhythm rate of 74 Normal axis No PVCs Normal QTC Cardiac Monitoring: An order was placed for continuous cardiac monitoring. The monitor shows a rate of 82 with sinus rhythm. Laboratory studies: As stated above and show below. Imaging studies: Portable AP upright 1 view of the chest shows no focal infiltrate or pneumothorax CT of the head shows no acute pathology. Consultation(s): Discussed with Dr. lundy ED COURSE: Procedures: none Critical Care: None Past Med/Surg History Social History Preferred Language: Slovak Communication Ability: Effective Plastic Finisher Required: No Beliefs That Will Affect Care: None Current Living Situation: Spouse Current Living Situation Comment: Lives with Feels Safe at Home: Yes Smoking Status: Never smoker Second Hand Exposure: No ; Hx Alcohol Use: No Hx Substance Use: No Allergies Allergies Allergy/AdvReac Type Severity Reaction Status Date / Time Macrolide Antibiotics Allergy Mild abdominal Verified 08/09/19 21:09 pains Sulfa (Sulfonamide Allergy Mild abdominal Verified 08/09/19 21:09 Antibiotics) pains erythromycin base AdvReac Intermediate VOMITING Verified 08/09/19 21:09 Home Meds Home Medications Medication Instructions Recorded Confirmed citalopram [Celexa] 40 mg PO QAM 06/13/18 08/09/19 lisinopril [Zestril] 40 mg PO QAM 06/13/18 08/09/19 multivitamin 1 tab PO QAM 06/13/18 08/09/19 calcium carbonate-vitamin D3 2 tab PO QAM 06/20/18 08/09/19 [Calcium 600 + D(3)] atorvastatin 40 mg PO QAM 07/20/18 08/09/19 omeprazole 20 mg PO QAM 07/20/18 08/09/19 aspirin 81 mg PO QAM 05/15/19 08/09/19 Otc Sinus Pills 2 tabs PO UD PRN 08/09/19 08/09/19 Results & Data (ED) Vital Signs Vital Signs - 24 hr 08/09/19 20:29 08/09/19 22:49 08/09/19 23:26 Temperature 38.4 C H Temperature Source Oral Pulse Rate 96 H 78 69 Pulse Rate from SpO2 Sensor 77 Pulse Rhythm Regular Pulse Strength Normal Respiratory Rate 20 24 18 Respiratory Effort / Characteristics Non-Labored Spontaneous Respiratory Depth Normal Respiratory Pattern Regular Blood Pressure 146/69 H 118/63 Blood Pressure Mean 94 78 Blood Pressure Position Sitting Pulse Oximetry 95 96 96 Oxygen Delivery Method Room Air Room Air Sepsis Recent Fever Within 48 Hours Yes Sepsis Action Taken by Nursing No Action Required Laboratory Data Result diagrams: 08/09/19 21:28 08/09/19 21:28 Lab Results 08/09/19 08/09/19 08/09/19 Range/Units 21:28 21:28 21:28 WBC 7.43 (4.8-10.8) K/uL RBC 4.25 (4.2-5.4) M/uL Hgb 11.9 L (12.0-16.0) g/dL Hct 35.4 L (37-47) % MCV 83.3 (80-100) fL MCH 28.0 (25-34) pg MCHC 33.6 (32-36) g/dL RDW Std Deviation 45.8 (36.4-46.3) fL RDW Coeff of Christian 15.0 H (11.5-14.5) % Plt Count 123 L (130-400) K/uL MPV 12.3 H (7.4-10.4) fL Immature Gran % (Auto) 0.1 % Neut % (Auto) 75.8 % Lymph % (Auto) 11.6 % Baca % (Auto) 12.1 % Eos % (Auto) 0.3 % Baso % (Auto) 0.1 % Immature Gran # (Auto) 0.01 (0.00-0.02) K/uL Neut # (Auto) 5.63 (1.4-6.5) K/uL Lymph # (Auto) 0.86 L (1.2-3.4) K/uL Baca # (Auto) 0.90 H (0.11-0.59) K/uL Eos # (Auto) 0.02 (0-0.5) K/uL Baso # (Auto) 0.01 (0-0.2) K/uL Platelet Estimate Decreased L (Normal) PT 10.5 (9.0-12.0) Seconds INR 1.0 (0.9-1.1) APTT 28.5 (21.0-31.0) Seconds PTT Ratio 1.0 Sodium 137 (136-145) mmol/L Potassium 3.6 (3.5-5.1) mmol/L Chloride 105 (98-107) mmol/L Carbon Dioxide 25 (21-32) mmol/L Anion Gap 7.0 (3-11) BUN 13 (7-18) mg/dl Creatinine 0.64 (0.6-1.2) mg/dl Est Cr Clr Drug Dosing 84.3 ml/min Est GFR ( Amer) 105.5 Est GFR (Non-Af Amer) 91.0 BUN/Creatinine Ratio 20.2 H (10-20) Glucose 150 H (70-99) mg/dl Lactate (0.4-2.0) mmol/L Calcium 8.8 (8.5-10.1) mg/dl Magnesium 2.0 (1.8-2.4) mg/dl Total Bilirubin 1.0 (0.2-1) mg/dl AST 21 (15-37) U/L ALT 24 (12-78) U/L Alkaline Phosphatase 89 (45-117) U/L Troponin I < 0.015 (0-0.045) ng/ml Total Protein 7.1 (6.4-8.2) gm/dl Albumin 3.4 (3.4-5.0) gm/dl Globulin 3.7 (2.5-4.0) gm/dl Albumin/Globulin Ratio 0.9 (0.9-2) Urine Color Urine Appearance (Clear) Urine pH (4.5-7.5) Ur Specific Lynn (1.000-1.030) Urine Protein (Negative) Urine Glucose (UA) (Negative) Urine Ketones (Negative) Urine Blood (Negative) Urine Nitrite (Negative) Urine Bilirubin (Negative) Urine Urobilinogen (Negative) Ur Leukocyte Esterase (Negative) Urine RBC (0-4) /hpf Urine WBC (0-5) /hpf Ur Epithelial Cells (0-5) /lpf Urine Bacteria (Negative) Influenza Type A (PCR) (Neg) Influenza Type B (PCR) (Neg) 08/09/19 08/09/19 08/09/19 Range/Units 21:28 21:28 21:40 WBC (4.8-10.8) K/uL RBC (4.2-5.4) M/uL Hgb (12.0-16.0) g/dL Hct (37-47) % MCV (80-100) fL MCH (25-34) pg MCHC (32-36) g/dL RDW Std Deviation (36.4-46.3) fL RDW Coeff of Christian (11.5-14.5) % Plt Count (130-400) K/uL MPV (7.4-10.4) fL Immature Gran % (Auto) % Neut % (Auto) % Lymph % (Auto) % Baca % (Auto) % Eos % (Auto) % Baso % (Auto) % Immature Gran # (Auto) (0.00-0.02) K/uL Neut # (Auto) (1.4-6.5) K/uL Lymph # (Auto) (1.2-3.4) K/uL Baca # (Auto) (0.11-0.59) K/uL Eos # (Auto) (0-0.5) K/uL Baso # (Auto) (0-0.2) K/uL Platelet Estimate (Normal) PT (9.0-12.0) Seconds INR (0.9-1.1) APTT (21.0-31.0) Seconds PTT Ratio Sodium (136-145) mmol/L Potassium (3.5-5.1) mmol/L Chloride (98-107) mmol/L Carbon Dioxide (21-32) mmol/L Anion Gap (3-11) BUN (7-18) mg/dl Creatinine (0.6-1.2) mg/dl Est Cr Clr Drug Dosing ml/min Est GFR ( Amer) Est GFR (Non-Af Amer) BUN/Creatinine Ratio (10-20) Glucose (70-99) mg/dl Lactate 0.6 (0.4-2.0) mmol/L Calcium (8.5-10.1) mg/dl Magnesium (1.8-2.4) mg/dl Total Bilirubin (0.2-1) mg/dl AST (15-37) U/L ALT (12-78) U/L Alkaline Phosphatase (45-117) U/L Troponin I (0-0.045) ng/ml Total Protein (6.4-8.2) gm/dl Albumin (3.4-5.0) gm/dl Globulin (2.5-4.0) gm/dl Albumin/Globulin Ratio (0.9-2) Urine Color Yellow Urine Appearance Clear (Clear) Urine pH 7.0 (4.5-7.5) Ur Specific Lynn 1.010 (1.000-1.030) Urine Protein Negative (Negative) Urine Glucose (UA) Negative (Negative) Urine Ketones Negative (Negative) Urine Blood 3+ H (Negative) Urine Nitrite Negative (Negative) Urine Bilirubin Negative (Negative) Urine Urobilinogen Negative (Negative) Ur Leukocyte Esterase 2+ H (Negative) Urine RBC 0-4 (0-4) /hpf Urine WBC >30 H (0-5) /hpf Ur Epithelial Cells 0-5 (0-5) /lpf Urine Bacteria 3+ H (Negative) Influenza Type A (PCR) Neg for Influ A (Neg) Influenza Type B (PCR) Neg for Influ B (Neg) Administered Medications Discontinued Medications Acetaminophen (Tylenol) 650 mg PO NOW STA Stop: 08/09/19 20:54 Last Admin: 08/09/19 21:48 Dose: 650 mg Documented by: [id number] Sodium Chloride (Nss 1000ml) 1,000 mls @ 999 mls/hr IV .Q1H1M ONE Stop: 08/09/19 21:44 Last Admin: 08/09/19 22:17 Dose: Not Given Documented by: [id number] Sodium Chloride (Nss 1000ml) 2,000 mls @ 999 mls/hr IV .Q2H1M ONE Stop: 08/09/19 22:53 Last Admin: 08/09/19 21:52 Dose: 999 mls/hr Documented by: [id number] Ceftriaxone Sodium (Rocephin) 2,000 mg in 70 mls @ 140 mls/hr IV NOW STA Stop: 08/09/19 21:22 Last Infusion: 08/09/19 22:27 Dose: 0 mls/hr Documented by: [id number] Admin: 08/09/19 21:49 Dose: 140 mls/hr Documented by: [id number] Discharge Plan Visit Data Chief Complaint: Fever Stated Complaint: FEVER, BODY ACHES, HEADACHE ED Provider: Eduard Live Discharge Problem: Sepsis, Thrombocytopenia, Fever, Acute UTI Forms Stand Alone Forms: [facility] Prescriptions Prescriptions: No Action aspirin 81 mg Tablet,Delayed Release (Dr/Ec) 81 mg PO QAM RF: 0 Otc Sinus Pills 2 tabs PO UD PRN (Reason: SINUS COELLO) RF: 0 lisinopril [Zestril] 40 mg tablet 40 mg PO QAM RF: 0 citalopram [Celexa] 40 mg tablet 40 mg PO QAM RF: 0 multivitamin Tablet 1 tab PO QAM RF: 0 calcium carbonate-vitamin D3 [Calcium 600 + D(3)] 600 mg(1,500mg) -200 unit Tablet 2 tab PO QAM RF: 0 atorvastatin 40 mg Tablet 40 mg PO QAM RF: 0 omeprazole 20 mg Tablet,Delayed Release (Dr/Ec) 20 mg PO QAM RF: 0 Discharge Problem: Sepsis Qualifiers: Sepsis type: sepsis due to unspecified organism Sepsis acute organ dysfunction status: unspecified Qualified Code(s): A41.9 - Sepsis, unspecified organism Fever Qualifiers: Fever type: unspecified Qualified Code(s): R50.9 - Fever, unspecified
[2019-08-09 22:08] LABS: Partial Thromboplastin Time 28.5 Seconds (21.0-31.0); Prothrombin Time 10.5 Seconds (9.0-12.0)
--- NOTE | 2019-08-09 22:12 | XRay Report ---
XR chest 1V portable CLINICAL HISTORY: Sepsis. COMPARISON STUDY: Chest radiograph October 08, 2018. FINDINGS: Lung volumes are normal. Linear left basilar opacity suggests atelectasis. There is no pneu mothorax or pleural effusion. Cardiac size is normal. Mediastinal contours are normal. There is no ev idence for pulmonary edema. IMPRESSION: No acute cardiopulmonary findings. ACT 112: Negative or not required by law. Electronically signed by: Ebenezer Hairston M.D. 08/09/2019 10:10 PM
[2019-08-09 22:15] LABS: Basophils # (auto) 0.01 K/uL (0-0.2); Basophils % (auto) 0.1 %; Eosinophils # (auto) 0.02 K/uL (0-0.5); Eosinophils % (auto) 0.3 %; Hematocrit (blood only) 35.4 % (37-47); Hemoglobin 11.9 g/dL (12.0-16.0); Immature Granulocytes # (auto) 0.01 K/uL (0.00-0.02); Immature Granulocytes % (auto) 0.1 %; Lymphocytes # (auto) 0.86 K/uL (1.2-3.4); Lymphocytes % (auto) 11.6 %; Mean Corpuscular Hgb Conc 33.6 g/dL (32-36); Mean Corpuscular Volume 83.3 fL (80-100); Mean Platelet Volume 12.3 fL (7.4-10.4); Monocytes % (auto) 12.1 %; Neutrophils # (auto) 5.63 K/uL (1.4-6.5); Neutrophils % (auto) 75.8 %; Platelet Count 123 K/uL (130-400); Platelet Estimate Decreased (Normal); RDW Standard Deviation 45.8 fL (36.4-46.3); Red Blood Count 4.25 M/uL (4.2-5.4); White Blood Count 7.43 K/uL (4.8-10.8)
[2019-08-09 22:21] LABS: Alanine Aminotransferase 24 U/L (12-78); Albumin Level 3.4 gm/dl (3.4-5.0); Aspartate Aminotransferase 21 U/L (15-37); BUN Creatinine Ratio 20.2 (10-20); Blood Urea Nitrogen 13 mg/dl (7-18); Calcium 8.8 mg/dl (8.5-10.1); Carbon Dioxide 25 mmol/L (21-32); Chloride 105 mmol/L (98-107); Creatinine Clr Calc Pharmacy 84.3 ml/min; Est GFR (African American) 105.5; Glucose 150 mg/dl (70-99); Potassium 3.6 mmol/L (3.5-5.1); Sodium 137 mmol/L (136-145)
[2019-08-09 22:25] LABS: Appearance Urine Clear (Clear); Bilirubin Urine Negative (Negative); Blood Urine 3+ (Negative); Color Urine Yellow; Glucose Urine UA Negative (Negative); Ketones Urine Negative (Negative); Leukocyte Esterase Urine 2+ (Negative); Nitrite Urine Negative (Negative); Protein Urine Negative (Negative); Urobilinogen Urine Negative (Negative)
[2019-08-09 22:26] LABS: Albumin Globulin Ratio 0.9 (0.9-2); Alkaline Phosphatase 89 U/L (45-117); Globulin 3.7 gm/dl (2.5-4.0); Total Protein 7.1 gm/dl (6.4-8.2); Troponin I < 0.015 ng/ml (0-0.045)
[2019-08-09 22:30] LABS: Influenza A virus by PCR Neg for Influ A (Neg); Influenza B virus by PCR Neg for Influ B (Neg)
--- NOTE | 2019-08-09 22:33 | CT Scan Report ---
CT OF THE HEAD WITHOUT CONTRAST CLINICAL HISTORY: headache COMPARISON STUDY: Head CT and MRI of the brain October 05, 2018. CT DOSE: 638.56 mGycm TECHNIQUE: Helical axial images of the head were obtained without IV contrast. Automated exposure con trol was utilized for the study. A dose lowering technique was utilized adhering to the principles o f ALARA. FINDINGS: No acute intracranial hemorrhage, midline shift or mass effect is present. The ventricular system is unremarkable. The basilar cisterns are patent. No extra-axial collections are present. Ther e are no findings to suggest acute dural sinus thrombosis or acute territorial infarct. No significan t calvarial abnormalities are present. Visualized portions of the sinuses and mastoid air cells are c lear with the exception of an opacified portion of the right sphenoid sinus which is chronic. IMPRESSION: No acute intracranial findings. ACT 112: Negative or not required by law. Electronically signed by: Ebenezer Hairston M.D. 08/09/2019 10:32 PM
[2019-08-09 22:40] LABS: Epithelial Cell Urine 0-5 /lpf (0-5); RBC Urine 0-4 /hpf (0-4); WBC Urine >30 /hpf (0-5)
[2019-08-09 22:42] LABS: Bacteria Urine 3+ (Negative)
--- NOTE | 2019-08-10 01:15 | History and Physical Report ---
DATE OF ADMISSION: 08/09/2019 CHIEF COMPLAINT: Fever, urinary symptoms. HISTORY OF PRESENT ILLNESS: This is a 69-year-old female with past medical history significant for hyperlipidemia, diabetes, not on medication, hypertension, irritable bowel syndrome, GERD, rectocele, urge incontinence of urine, paraesophageal hernia, hiatal hernia, psoriasis, history of TIA, anxiety, primary insomnia, who presents with urinary symptoms and fevers. The patient says since last Tuesday, he is having increased frequency of urine and burning micturition. She noticed some blood in the urine too and having generalized body ache and also neck pain, but able to flex the neck. 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 Denies any chest pain, no shortness of breath, no cough, no loss of smell or taste. No sick contacts, no travel outside. Lives with her . Ambulating okay. Appetite is okay, sleeping okay. Has some mild headache. No blurred vision, no earache, no runny nose, no sore throat, no difficulty swallowing. No rash, no swelling in the legs. Currently resting comfortable and hemodynamically stable. ALLERGIES: BARBITURATES, CODEINE, ERYTHROMYCIN, SEPTRA, SULFA. PAST MEDICAL HISTORY: As mentioned above. PAST SURGICAL HISTORY: Appendectomy at the time of hysterectomy, colonoscopy, EGDs, laser trabeculoplasty, paraesophageal hernia repair with mesh, partial hysterectomy. MEDICATIONS: The patient is on atorvastatin 40 mg p.o. daily, omeprazole 20 mg p.o. daily, lisinopril 40 mg p.o. daily, aspirin 81 mg p.o. daily, Os-Keagan 500 D one tablet daily, citalopram 40 mg p.o. daily. FAMILY HISTORY: Significant for mother had breast cancer, hypertension; father has hypertension, glaucoma, and [place]; brother has diabetes, eye problems; sister has glaucoma. SOCIAL HISTORY: , lives with . No smoking, no alcohol, no drug use. REVIEW OF SYSTEMS: As per HPI. Rest of review of systems negative. PHYSICAL EXAMINATION: GENERAL: The patient is of moderate build, not in acute distress. VITAL SIGNS: Temperature 38.4, pulse 69, respiratory rate 18, blood pressure 118/63, oxygen 96% on room air. HEENT: No pallor, no icterus. Pupils equal and round NECK: Supple. No neck masses. Normal movements of the neck. CARDIOVASCULAR: S1, S2 heard, regular rate and rhythm, no murmur, no gallop. RESPIRATORY SYSTEM: Normal AP diameter. No accessory muscle use. No wheezing, no crackles. ABDOMEN: Soft, bowel sounds present, nontender. No distention. CENTRAL NERVOUS SYSTEM: Cranial nerves II-XII grossly intact, nonfocal. EXTREMITIES: No edema, no erythema. LABORATORY DATA: WBC 7.4, hemoglobin 11.9, hematocrit 35.4, platelets 123. PT 10.5, INR 1, APTT 28.5. Sodium 137, potassium 3.6, chloride 105, bicarbonate 25, BUN 13, creatinine 0.6, serum glucose 150, lactate 0.6, calcium 8.8, magnesium 2, total bilirubin 1, AST 21, ALT 24, alkaline phosphatase 89. Troponin I less than 0.015. Urinalysis, +3 blood, +2 leukocyte esterase, +3 bacteria. Influenza A and B negative. IMAGING DATA: Chest x-ray, no acute cardiopulmonary findings. CT of the head, no acute intracranial findings. EKG: Normal sinus rhythm at a rate of 74, no acute ST changes seen. ASSESSMENT AND PLAN: This is a 69-year-old female who presents with fever, generalized body aches, neck pain, and found to have a urinary tract infection. 1. Urinary tract infection, not in sepsis, currently generalized body aches, fever and urinary symptoms. UA was positive. We will treat with Rocephin. Follow the cultures. The patient also has neck pain. The patient has history of Listeria meningitis in the past year, but currently though she has body ache and neck pain, she is able to flex her neck. Movements of the neck are normal. No nuchal rigidity observed. We will treat for urinary tract infection. Because of history of Listeria meningitis, will consult ID for further recommendations. 2. History of diabetes, not on any medications. Will follow HbA1c level and diabetic diet. 3. Hypertension. Continue lisinopril. Follow the blood pressure. 4. History of hyperlipidemia, continue statin. 5. Gastroesophageal reflux disease, continue omeprazole. 6. Depression, continue citalopram. 7. Deep venous thrombosis prophylaxis, sequential compression devices. DISPOSITION: Admit to medical floor. Level 1 full code. Expect to discharge home and follow with family doctor. ADALBERTO
[2019-08-10] MEDS ORDERED: ACETAMINOPHEN 325 MG TAB PO PRN (01:28)
[2019-08-10] MEDS ORDERED: ONDANSETRON INJ 2 MG/ML 2 ML VIAL IV PRN (01:28)
[2019-08-10] MEDS: SODIUM CHLORIDE 0.9% 1000ML 1,000 ML IV SCH ×3 (02:11→17:09)
[2019-08-10 06:00] LABS: BUN Creatinine Ratio 13.3 (10-20); Calcium 8.2 mg/dl (8.5-10.1); Creatinine Clr Calc Pharmacy 86.9 ml/min; Est GFR (African American) 106.6; Hematocrit (blood only) 39.1 % (37-47); Hemoglobin 12.7 g/dL (12.0-16.0); Mean Corpuscular Hemoglobin 27.5 pg (25-34); Mean Corpuscular Hgb Conc 32.5 g/dL (32-36); Mean Corpuscular Volume 84.6 fL (80-100); Potassium 3.6 mmol/L (3.5-5.1); RDW Standard Deviation 46.5 fL (36.4-46.3); Red Blood Count 4.62 M/uL (4.2-5.4)
[2019-08-10 06:12] LABS: Basophils # (auto) 0.01 K/uL (0-0.2); Basophils % (auto) 0.1 %; Eosinophils # (auto) 0.07 K/uL (0-0.5); Eosinophils % (auto) 0.9 %; Giant Platelets 1+; Immature Granulocytes # (auto) 0.01 K/uL (0.00-0.02); Immature Granulocytes % (auto) 0.1 %; Lymphocytes # (auto) 1.28 K/uL (1.2-3.4); Lymphocytes % (auto) 16.2 %; Mean Platelet Volume 12.2 fL (7.4-10.4); Monocytes # (auto) 0.74 K/uL (0.11-0.59); Monocytes % (auto) 9.4 %; Neutrophils # (auto) 5.79 K/uL (1.4-6.5); Neutrophils % (auto) 73.3 %; Ovalocytes 1+; Platelet Count 127 K/uL (130-400); Platelet Estimate Decreased (Normal)
[2019-08-10 06:47] LABS: Estimated Average Glucose 140 mg/dl; Hemoglobin A1C 6.5 % (4.5-5.6)
[2019-08-10] MEDS: CALCIUM 600MG + VIT D 400 IU TAB PO SCH (08:29)
[2019-08-10] MEDS: ATORVASTATIN 40 MG TAB PO SCH (08:29)
[2019-08-10] MEDS: lisinopriL 40 MG TAB PO SCH (08:30)
[2019-08-10] MEDS: CITALOPRAM 40 MG TAB PO SCH (08:30)
[2019-08-10] MEDS: MULTIVITAMIN TAB PO SCH (08:30)
[2019-08-10] MEDS: PANTOprazole 40 MG TAB PO SCH (08:30)
[2019-08-10] MEDS: ASPIRIN 81 MG ECTAB PO SCH (08:30)
--- NOTE | 2019-08-10 11:01 | Infectious Disease Consult ---
Date of Consultation August 10, 2019 Assessment & Plan (1) Acute UTI: can continue with ctx for now, follow culture and adjust to po when able. would give 7 days total. no need for LP at this time. History of Present Illness Attending Physician: Arvin Arauz MD pt admitted with diffuse body aches, dysuria, cloudy urine and fever. UA in ER >30 wbc, + 3bacteria. on ctx, tmax in ER 38.4, otherwise afebrile. feeling better today. tolerating abx. no blood cultures. wbc normal. creat 0.6, flu negative, she declined COVID testing, currently in droplet precautions. ID consulted for h/o listeria meningitis in 2018, she was successfully treated for this. no LP done. no neck pain, no stiffness, no mcmullen, no visual changes, no photophobia. feeling better today, min abd pain, gu symptoms improved, but still with cloudy urine. no cp, sob, cough, no n/v/d. CXR negative, ct head negative. asking to go home. Allergies Allergy/AdvReac Type Severity Reaction Status Date / Time Macrolide Antibiotics Allergy Mild abdominal Verified 08/09/19 21:09 pains Sulfa (Sulfonamide Allergy Mild abdominal Verified 08/09/19 21:09 Antibiotics) pains erythromycin base AdvReac Intermediate VOMITING Verified 08/09/19 21:09 Home Medications Home Medications Medication Instructions Recorded Confirmed Type citalopram [Celexa] 40 mg PO QAM 06/13/18 08/09/19 History lisinopril [Zestril] 40 mg PO QAM 06/13/18 08/09/19 History multivitamin 1 tab PO QAM 06/13/18 08/09/19 History calcium carbonate-vitamin D3 2 tab PO QAM 06/20/18 08/09/19 History [Calcium 600 + D(3)] atorvastatin 40 mg PO QAM 07/20/18 08/09/19 History omeprazole 20 mg PO QAM 07/20/18 08/09/19 History aspirin 81 mg PO QAM 05/15/19 08/09/19 History Otc Sinus Pills 2 tabs PO UD PRN 08/09/19 08/09/19 History Patient History Medical History Anemia Bacterial meningitis, unspecified 2018 Depression Diabetes mellitus, type 2 diet controlled Former smoker GERD (gastroesophageal reflux disease) History of TIA (transient ischemic attack) (Resolved) 2000--no deficits Hypertension (Chronic) IBS (irritable bowel syndrome) (Chronic) Kidney stones Surgical History H/O esophageal hernia repair History of colonoscopy History of detached retina repair History of dilatation and curettage History of esophagogastroduodenoscopy (EGD) History of hysterectomy with unilateral oophorectomy History of tooth extraction some upper teeth History of wisdom tooth extraction Family History Uncle Family history of malignant hyperthermia maternal uncle Mother Family history of reaction to anesthesia "quit breathing after major back surgery" Father Family history of diabetes mellitus Grandmother (Paternal) Family history of diabetes mellitus Grandfather (Paternal) Family history of diabetes mellitus Uncle Family history of diabetes mellitus Aunt Family history of diabetes mellitus Brother Family history of diabetes mellitus Social History Preferred Language: Bahraini Communication Ability: Effective Operations Lead Required: No Beliefs That Will Affect Care: None Current Living Situation: Spouse Current Living Situation Comment: Lives with Other Information That Helps Us Care for You: No Feels Safe at Home: Yes Safety Concerns: Feels Safe At This Time Smoking Status: Never smoker Do You Dip or Chew Tobacco: No ; Second Hand Exposure: No ; Tobacco Cessation Education Requested by Patient: No Hx Alcohol Use: No Hx Substance Use: No Review of Systems Review of Systems: All systems reviewed & are unremarkable except as noted in HPI & below Physical Exam Constitutional: WD/WN, vitals as above Eyes: PERRL, conjunctivae normal, anicteric sclerae ENMT: external ear and nose normal, oropharynx normal Neck: normal visual inspection Respiratory: normal respiratory effort, lungs clear to auscultation Cardiovascular: RRR, no murmur, no edema Gastrointestinal (Abdomen): normal bowel sounds, soft, nontender, no hepatosplenomegaly Musculoskeletal: no cyanosis or clubbing, extremities motor strength 5/5 Skin: no rashes, warm and dry Psychiatric: A+Ox3, euthymic affect Results & Data ([place]) Vital Signs (Past 12 Hours) Vital Signs Temp Pulse Pulse Resp BP BP Pulse Ox 08/10/19 07:47 37.2 C 75 18 125/69 95 08/10/19 01:36 36.6 C 61 14 149/74 H 97 08/10/19 01:30 36.6 C 64 18 149/74 H 96 08/10/19 00:50 36.7 C 62 20 124/62 95 08/09/19 23:26 69 18 96 PG Care Time/CCT Total # of Minutes Spent Total Time Spent with Patient: Total time spent is greater than 50% in coordination of care (as documented) at patient's floor/unit and/or counseling patient: Coding Level of Care Code 65071 Inpt Consult Level 4 Diagnoses Acute UTI N39.0
--- NOTE | 2019-08-10 14:35 | Hospitalist Progress Note ---
Date of Service August 10, 2019 Assessment & Plan (1) Acute UTI: Presented with urinary frequency, dysuria with fever, body aches and chills UA suggestive of UTI Has been on intravenous ceftriaxone Clinically a little bit better today We will continue current medications Discussed with the daughter The patient has been exposed to asymptomatic COVID-19 carriers She presented with fever and body ache She will have test for COVID-19 (2) History of listeria meningitis: History of Listeria meningitis No symptoms of meningitis on admission Has been seen by ID specialist No need to do any further testing like LP at this time (3) Hypertension: Blood pressure is controlled Admission and Anticipated Discharge Date Admission Date: August 09, 2019 Subjective Patient was seen and examined in medical floor She was admitted yesterday with fever, chills, generalized body aches and noted to have acute UTI She has been feeling better as of this morning and denies any significant symptoms She has been exposed to possible asymptomatic carrier of COVID-19 carer as per the daughter. Review of Systems Review of Systems: All systems reviewed and are unremarkable except as noted below Respiratory: no cough, no chest congestion and no dyspnea Cardiovascular: no chest pain Gastrointestinal: no abdominal pain, no nausea and no vomiting Genitourinary: + urinary frequency and + urinary urgency; no dysuria and no hematuria Musculoskeletal: No acute arthritis involving any joints Physical Exam Physical Exam: Lying in bed comfortably Constitutional: well developed, well nourished and + ill appearing; no acute distress Eyes: PERRL, conjunctivae normal, anicteric sclerae ENMT: external ear and nose normal, oropharynx normal Neck: trachea midline, no thyromegaly Respiratory: normal respiratory effort; no respiratory distress Auscultation: lungs clear to auscultation bilaterally Cardiovascular: Rate/Rhythm: regular rate and regular rhythm Heart Sounds: no murmur Gastrointestinal (Abdomen): Inspection/Auscultation: abdomen normal to inspection and normal bowel sounds Percussion/Palpation: abdomen soft; abdomen nontender Musculoskeletal: No acute arthritis involving any joints Neurologic: moves all extremities; no focal motor deficits Lymphatic: no cervical or axillary lymphadenopathy Results & Data Results & Data ([facility]) Vital Signs (Past 12 Hours) Vital Signs Temp Pulse Resp BP Pulse Ox 08/10/19 07:47 37.2 C 75 18 125/69 95 Laboratory Results Short CBC 05/14/20 05/15/20 Range/Units 21:28 05:25 WBC 7.43 7.90 (4.8-10.8) K/uL Hgb 11.9 L 12.7 (12.0-16.0) g/dL Hct 35.4 L 39.1 (37-47) % Plt Count 123 L 127 L (130-400) K/uL BMP 08/09/19 08/10/19 21:28 05:25 Sodium 137 144 D Potassium 3.6 3.6 Chloride 105 112 H Carbon Dioxide 25 29 BUN 13 8 D Creatinine 0.64 0.62 Glucose 150 H 122 H Calcium 8.8 8.2 L Cardiac Enzymes 08/09/19 Range/Units 21:28 Troponin I < 0.015 (0-0.045) ng/ml Liver Function 08/09/19 Range/Units 21:28 Total Bilirubin 1.0 (0.2-1) mg/dl AST 21 (15-37) U/L ALT 24 (12-78) U/L Alkaline Phosphatase 89 (45-117) U/L Albumin 3.4 (3.4-5.0) gm/dl Urine 08/09/19 Range/Units 21:28 Urine Color Yellow Urine Appearance Clear (Clear) Urine pH 7.0 (4.5-7.5) Ur Specific [place] 1.010 (1.000-1.030) Urine Protein Negative (Negative) Urine Glucose (UA) Negative (Negative) Medications Administered Current Inpatient Medications Acetaminophen (Tylenol) 650 mg PO Q4H PRN PRN Reason: pain/fever Stop: 09/09/19 01:27 Aspirin (Ecotrin Ectab) 81 mg PO [facility] Stop: 09/09/19 08:59 Last Admin: 08/10/19 08:30 Dose: 81 mg Documented by: Atorvastatin Calcium (Lipitor) 40 mg PO [facility] Stop: 09/09/19 08:59 Last Admin: 08/10/19 08:29 Dose: 40 mg Documented by: Citalopram Hydrobromide (Celexa) 40 mg PO [facility] Stop: 09/09/19 08:59 Last Admin: 08/10/19 08:30 Dose: 40 mg Documented by: Ceftriaxone Sodium 1,000 mg/ (Dextrose) 50 mls @ 100 mls/hr IV Q24H [facility]; Protocol Stop: 08/18/19 21:29 Sodium Chloride (Nss 1000ml) 1,000 mls @ 125 mls/hr IV .Q8H [facility] Stop: 09/09/19 01:27 Last Admin: 08/10/19 09:30 Dose: 125 mls/hr Documented by: [facility]) [facility] Stop: 09/09/19 08:59 Last Admin: 08/10/19 08:30 Dose: 40 mg Documented by: Multivitamins (Multivitamin Tab) 1 tab PO [facility] Stop: 09/09/19 08:59 Last Admin: 08/10/19 08:30 Dose: 1 tab Documented by: Multivitamins/Minerals (Caltrate Plus) 2 tab PO [facility] Stop: 09/09/19 08:59 Last Admin: 08/10/19 08:29 Dose: 2 tab Documented by: Ondansetron HCl (Zofran) 4 mg IV Q6H PRN PRN Reason: Nausea Stop: 09/09/19 01:27 Pantoprazole Sodium (Protonix) 40 mg PO [facility] Stop: 09/09/19 08:59 Last Admin: 08/10/19 08:30 Dose: 40 mg Documented by:
--- NOTE | 2019-08-10 16:45 | Electrocardiogram Report ---
Test Reason : Blood Pressure : / mmHG Vent. Rate : 074 BPM Atrial Rate : 074 BPM P-R Int : 132 ms QRS Dur : 082 ms QT Int : 394 ms P-R-T Axes : 065 058 068 degrees QTc Int : 437 ms Normal sinus rhythm Normal ECG When compared with ECG of 08-OCT-2018 11:08, Vent. rate has increased BY 26 BPM Confirmed by Yovanny Rodriguez ([id number]) on 08/10/2019 4:45:39 PM Referred By: REFERRED SELF Confirmed By:Yovanny Rodriguez
[2019-08-10] MEDS: cefTRIAXone SODIUM 1,000 MG in DEXTROSE 5% 50 ML IV SCH (20:45)
[2019-08-10] MEDS ORDERED: GLUCOSE 40% GEL 15 GM TUBE PO PRN (22:15)
[2019-08-10] MEDS ORDERED: CARBOHYDRATES FOR HYPOGLYCEMIA PO PRN (22:15)
[2019-08-10] MEDS ORDERED: GLUCAGON FOR INJ 1 MG VIAL SQ PRN (22:15)
[2019-08-10] MEDS ORDERED: DEXTROSE 50% 50 ML SYRINGE IV PRN (22:15)
[2019-08-10] MEDS ORDERED: GLUCOSE 10 TABS/TUBE PO PRN (22:15)
[2019-08-11] MEDS: SODIUM CHLORIDE 0.9% 1000ML 1,000 ML IV SCH ×3 (00:51→16:18)
[2019-08-11] MEDS: CALCIUM 600MG + VIT D 400 IU TAB PO SCH (08:41)
[2019-08-11] MEDS: CITALOPRAM 40 MG TAB PO SCH (08:41)
[2019-08-11] MEDS: ATORVASTATIN 40 MG TAB PO SCH (08:41)
[2019-08-11] MEDS: MULTIVITAMIN TAB PO SCH (08:42)
[2019-08-11] MEDS: ASPIRIN 81 MG ECTAB PO SCH (08:42)
[2019-08-11] MEDS: lisinopriL 40 MG TAB PO SCH (08:42)
[2019-08-11] MEDS: PANTOprazole 40 MG TAB PO SCH (08:42)
[2019-08-11] MEDS: INSULIN ASPART 100 UNITS/ML 3 ML PEN SC SCH ×4 (08:55→20:54)
--- NOTE | 2019-08-11 13:49 | Hospitalist Progress Note ---
Date of Service August 11, 2019 Assessment & Plan (1) Acute UTI: Presented with urinary frequency, dysuria with fever, body aches and chills UA suggestive of UTI Has been on intravenous ceftriaxone Clinically a little bit better today We will continue current medications Urine culture is growing E. coli Will await sensitivity before discharging her Discussed with the daughter The patient has been exposed to asymptomatic COVID-19 carriers She presented with fever and body ache She will have test for [id number] test is negative (2) History of listeria meningitis: History of Listeria meningitis No symptoms of meningitis on admission Has been seen by ID specialist No need to do any further testing like LP at this time No acute symptoms (3) Hypertension: Blood pressure is controlled Controlled Likely discharge tomorrow following the results of sensitivity Admission and Anticipated Discharge Date Admission Date: August 09, 2019 Subjective Patient was seen and examined in medical floor She was admitted yesterday with fever, chills, generalized body aches and noted to have acute UTI She has been feeling better as of this morning and denies any significant symptoms She has been exposed to possible asymptomatic carrier of COVID-19 carer as per the daughter. 08/11/2019 The patient was seen and examined in medical floor She denies any symptoms and has been ambulating well in the hallways Heart COVID-19 test has been negative Review of Systems Review of Systems: All systems reviewed and are unremarkable except as noted below Genitourinary: no dysuria, no urinary frequency, no urinary urgency and no hematuria Musculoskeletal: No acute arthritis involving any joints Physical Exam Physical Exam: Lying in bed comfortably Constitutional: well developed, well nourished and + ill appearing; no acute distress Eyes: PERRL, conjunctivae normal, anicteric sclerae ENMT: external ear and nose normal, oropharynx normal Neck: trachea midline, no thyromegaly Respiratory: normal respiratory effort; no respiratory distress Auscultation: lungs clear to auscultation bilaterally Cardiovascular: Rate/Rhythm: regular rate and regular rhythm Heart Sounds: no murmur Gastrointestinal (Abdomen): Inspection/Auscultation: abdomen normal to inspection and normal bowel sounds Percussion/Palpation: abdomen soft; abdomen nontender Musculoskeletal: No acute arthritis in any joints Neurologic: moves all extremities; no focal motor deficits Lymphatic: no cervical or axillary lymphadenopathy Results & Data Results & Data ([facility]) Vital Signs (Past 12 Hours) Vital Signs Temp Pulse Resp BP Pulse Ox 08/11/19 08:02 37.0 C 66 18 132/74 94 Medications Administered Current Inpatient Medications Acetaminophen (Tylenol) 650 mg PO Q4H PRN PRN Reason: pain/fever Stop: 09/09/19 01:27 Aspirin (Ecotrin Ectab) 81 mg PO [facility] Stop: 09/09/19 08:59 Last Admin: 08/11/19 08:42 Dose: 81 mg Documented by: Atorvastatin Calcium (Lipitor) 40 mg PO [facility] Stop: 09/09/19 08:59 Last Admin: 08/11/19 08:41 Dose: 40 mg Documented by: Citalopram Hydrobromide (Celexa) 40 mg PO [facility] Stop: 09/09/19 08:59 Last Admin: 08/11/19 08:41 Dose: 40 mg Documented by: Dextrose (Dextrose 50%) 25 - 50 ml IV UD PRN; Protocol PRN Reason: Hypoglycemia Protocol Stop: 09/09/19 22:14 Glucagon (Glucagen) 1 mg SQ UD PRN; Protocol PRN Reason: Hypoglycemia Protocol Stop: 09/09/19 22:14 Glucose (Glucose 40%) 15 - 30 gm PO UD PRN; Protocol PRN Reason: Hypoglycemia Protocol Stop: 09/09/19 22:14 Glucose (Dex4 Glucose) 4 - 8 tabs PO UD PRN; Protocol PRN Reason: Hypoglycemia Protocol Stop: 09/09/19 22:14 Ceftriaxone Sodium 1,000 mg/ (Dextrose) 50 mls @ 100 mls/hr IV Q24H [facility]; Protocol Stop: 08/18/19 21:29 Last Infusion: 08/10/19 21:42 Dose: Infused Documented by: Sodium Chloride (Nss 1000ml) 1,000 mls @ 125 mls/hr IV .Q8H [facility] Stop: 09/09/19 01:27 Last Admin: 08/11/19 08:03 Dose: 125 mls/hr Documented by: Insulin Aspart (Novolog Flexpen) 0 units SC ACHS [facility] Stop: 09/10/19 07:29 Last Admin: 08/11/19 12:41 Dose: Not Given Documented by: Lisinopril (Zestril) 40 mg PO [facility] Stop: 09/09/19 08:59 Last Admin: 08/11/19 08:42 Dose: 40 mg Documented by: Miscellaneous (Carbohydrates For Hypoglycemia) 15 - 30 gm PO UD PRN PRN Reason: Hypoglycemia Treatment Stop: 09/09/19 22:14 Multivitamins (Multivitamin Tab) [facility] Stop: 09/09/19 08:59 Last Admin: 08/11/19 08:42 Dose: 1 tab Documented by: Multivitamins/Minerals (Caltrate Plus) 2 [facility] Stop: 09/09/19 08:59 Last Admin: 08/11/19 08:41 Dose: 2 tab Documented by: Ondansetron HCl (Zofran) 4 mg IV Q6H PRN PRN Reason: Nausea Stop: 09/09/19 01:27 Pantoprazole Sodium (Protonix) 40 [facility] Stop: 09/09/19 08:59 Last Admin: 08/11/19 08:42 Dose: 40 mg Documented by:
--- NOTE | 2019-08-11 16:49 | XRay Report ---
CERVICAL SPINE 3 VIEWS CLINICAL HISTORY: Cervicalgia. FINDINGS: AP, lateral, and odontoid views of the cervical spine are correlated with CT of the cervica l spine dated 10/05/2018. The skeletal structures are osteopenic. There is no radiographic evidence of fracture or subluxation. Vertebral body height and alignment are maintained throughout the cervical spine. The odontoid process and lateral masses appear intact on the open-mouth view. The atlantodenta l articulation is maintained noting productive degenerative change. The spinolaminar line is preserve d. The spinous processes are intact. The disc spaces are well-maintained. Mild facet arthropathy is n oted on the frontal view. The prevertebral soft tissues are normal as imaged. Partially imaged apical lung parenchyma appears clear. IMPRESSION: No acute osseous abnormality is identified. Electronically signed by: Lee Morrell M.D. 08/11/2019 4:48 PM
[2019-08-11] MEDS: cefTRIAXone SODIUM 1,000 MG in DEXTROSE 5% 50 ML IV SCH (20:29)
[2019-08-12 07:48] VITALS: BP 130/74; PULSE 57; TEMP 98.1; O2SAT 95
[2019-08-12] MEDS: ATORVASTATIN 40 MG TAB PO SCH (08:34)
[2019-08-12] MEDS: PANTOprazole 40 MG TAB PO SCH (08:34)
[2019-08-12] MEDS: MULTIVITAMIN TAB PO SCH (08:34)
[2019-08-12] MEDS: lisinopriL 40 MG TAB PO SCH (08:34)
[2019-08-12] MEDS: CITALOPRAM 40 MG TAB PO SCH (08:34)
[2019-08-12] MEDS: ASPIRIN 81 MG ECTAB PO SCH (08:34)
[2019-08-12] MEDS: CALCIUM 600MG + VIT D 400 IU TAB PO SCH (08:35)
[2019-08-12] MEDS: INSULIN ASPART 100 UNITS/ML 3 ML PEN SC SCH ×2 (08:58→12:33)
--- NOTE | 2019-08-12 11:22 | Hospitalist Progress Note ---
Date of Service August 12, 2019 Assessment & Plan (1) Acute UTI: Presented with urinary frequency, dysuria with fever, body aches and chills UA suggestive of UTI Has been on intravenous ceftriaxone Clinically a little bit better today We will continue current medications Urine culture is growing E. 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 on admission Has been seen by ID specialist No need to do any further testing like LP at this time No acute symptoms (3) Hypertension: Blood pressure is controlled Controlled Will discharge this afternoon Admission and Anticipated Discharge Date Admission Date: August 09, 2019 Subjective Patient was seen and examined in medical floor She was admitted yesterday with fever, chills, generalized body aches and noted to have acute UTI She has been feeling better as of this morning and denies any significant symptoms She has been exposed to possible asymptomatic carrier of COVID-19 carer as per the daughter. 08/11/2019 The patient was seen and examined in medical floor She denies any symptoms and has been ambulating well in the hallways Her COVID-19 test has been negative 08/12/2019 The patient was seen and examined in medical floor She has been feeling lot better denies any neck pain even when she complained yesterday No urinary symptoms and no fever and/or chills Review of Systems Review of Systems: All systems reviewed and are unremarkable except as noted below Musculoskeletal: no neck pain No acute arthritis involving any joints Physical Exam Physical Exam: Lying in bed comfortably Constitutional: well developed, well nourished and + ill appearing; no acute distress Eyes: PERRL, conjunctivae normal, anicteric sclerae ENMT: external ear and nose normal, oropharynx normal Neck: trachea midline, no thyromegaly Respiratory: normal respiratory effort; no respiratory distress Auscultation: lungs clear to auscultation bilaterally Cardiovascular: Rate/Rhythm: regular rate and regular rhythm Heart Sounds: no murmur Gastrointestinal (Abdomen): Inspection/Auscultation: abdomen normal to inspection and normal bowel sounds Percussion/Palpation: abdomen soft; abdomen nontender Musculoskeletal: No acute arthritis involving any joints Neurologic: moves all extremities; no focal motor deficits Alert, awake and oriented x3. No focal sensory and motor deficit Lymphatic: no cervical or axillary lymphadenopathy Results & Data Results & Data ([facility]) Vital Signs (Past 12 Hours) Vital Signs Temp Pulse Resp BP Pulse Ox 08/12/19 07:48 36.7 C 57 L 18 130/74 95 Medications Administered Current Inpatient Medications Acetaminophen (Tylenol) 650 mg PO Q4H PRN PRN Reason: pain/fever Stop: 09/09/19 01:27 Last Admin: 08/11/19 20:36 Dose: 650 mg Documented by: Aspirin (Ecotrin Ectab) 81 mg PO [facility] Stop: 09/09/19 08:59 Last Admin: 08/12/19 08:34 Dose: 81 mg Documented by: Atorvastatin Calcium (Lipitor) 40 mg PO [facility] Stop: 09/09/19 08:59 Last Admin: 08/12/19 08:34 Dose: 40 mg Documented by: Citalopram Hydrobromide (Celexa) 40 mg PO [facility] Stop: 09/09/19 08:59 Last Admin: 08/12/19 08:34 Dose: 40 mg Documented by: Dextrose (Dextrose 50%) 25 - 50 ml IV UD PRN; Protocol PRN Reason: Hypoglycemia Protocol Stop: 09/09/19 22:14 Glucagon (Glucagen) 1 mg SQ UD PRN; Protocol PRN Reason: Hypoglycemia Protocol Stop: 09/09/19 22:14 Glucose (Glucose 40%) 15 - 30 gm PO UD PRN; Protocol PRN Reason: Hypoglycemia Protocol Stop: 09/09/19 22:14 Glucose (Dex4 Glucose) 4 - 8 tabs PO UD PRN; Protocol PRN Reason: Hypoglycemia Protocol Stop: 09/09/19 22:14 Ceftriaxone Sodium 1,000 mg/ (Dextrose) 50 mls @ 100 mls/hr IV Q24H [facility]; Protocol Stop: 08/18/19 21:29 Last Infusion: 08/11/19 22:32 Dose: Infused Documented by: Insulin Aspart (Novolog Flexpen) 0 units SC ACHS [facility] Stop: 09/10/19 07:29 Last Admin: 08/12/19 08:58 Dose: Not Given Documented by: Lisinopril (Zestril) 40 mg PO [facility] Stop: 09/09/19 08:59 Last Admin: 08/12/19 08:34 Dose: 40 mg Documented by: Miscellaneous (Carbohydrates For Hypoglycemia) 15 - 30 gm PO UD PRN PRN Reason: Hypoglycemia Treatment Stop: 09/09/19 22:14 Multivitamins (Multivitamin Tab) [facility] [place]: 09/09/19 08:59 Last Admin: 08/12/19 08:34 Dose: 1 tab Documented by: Multivitamins/Minerals (Caltrate Plus) 2 tab PO [facility] Stop: 09/09/19 08:59 Last Admin: 08/12/19 08:35 Dose: 2 tab Documented by: Ondansetron HCl (Zofran) 4 mg IV Q6H PRN PRN Reason: Nausea Stop: 09/09/19 01:27 Pantoprazole Sodium (Protonix) 40 mg PO [facility] Stop: 09/09/19 08:59 Last Admin: 08/12/19 08:34 Dose: 40 mg Documented by:
[2019-08-12] MEDS ORDERED: cephALEXin 500 MG CAP PO SCH (14:00)
--- NOTE | 2019-08-24 11:29 | Discharge Summary ---
Date of Service August 24, 2019 Admission HPI Per Admitting Provider DICTATED BY: Mal Collins MD DATE OF ADMISSION: 08/09/2019 CHIEF COMPLAINT: Fever, urinary symptoms. HISTORY OF PRESENT ILLNESS: This is a 69-year-old female with past medical history significant for hyperlipidemia, diabetes, not on medication, hypertension, irritable bowel syndrome, GERD, rectocele, urge incontinence of urine, paraesophageal hernia, hiatal hernia, psoriasis, history of TIA, anxiety, primary insomnia, who presents with urinary symptoms and fevers. The patient says since last Tuesday, he is having increased frequency of urine and burning micturition. She noticed some blood in the urine too and having generalized body ache and also neck pain, but able to flex the neck. 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 Denies any chest pain, no shortness of breath, no cough, no loss of smell or taste. No sick contacts, no travel outside. Lives with her . Ambulating okay. Appetite is okay, sleeping okay. Has some mild headache. No blurred vision, no earache, no runny nose, no sore throat, no difficulty swallowing. No rash, no swelling in the legs. Currently resting comfortable and hemodynamically stable. Admission Exam Per Admitting Provider GENERAL: The patient is of moderate build, not in acute distress. VITAL SIGNS: Temperature 38.4, pulse 69, respiratory rate 18, blood pressure 118/63, oxygen 96% on room air. HEENT: No pallor, no icterus. Pupils equal and round NECK: Supple. No neck masses. Normal movements of the neck. CARDIOVASCULAR: S1, S2 heard, regular rate and rhythm, no murmur, no gallop. RESPIRATORY SYSTEM: Normal AP diameter. No accessory muscle use. No wheezing, no crackles. ABDOMEN: Soft, bowel sounds present, nontender. No distention. CENTRAL NERVOUS SYSTEM: Cranial nerves II-XII grossly intact, nonfocal. EXTREMITIES: No edema, no erythema. Principal Diagnosis Acute UTI, hypertension Discharge Exam Constitutional well developed, well nourished and + ill appearing; no acute distress Eyes PERRL, conjunctivae normal, anicteric sclerae ENMT external ear and nose normal, oropharynx normal Neck trachea midline, no thyromegaly Respiratory normal respiratory effort; no respiratory distress Auscultation: lungs clear to auscultation bilaterally Cardiovascular Rate/Rhythm: regular rate and regular rhythm Heart Sounds: no murmur Gastrointestinal (Abdomen) Inspection/Auscultation: abdomen normal to inspection and normal bowel sounds Percussion/Palpation: abdomen soft; abdomen nontender Neurologic moves all extremities; no focal motor deficits Lymphatic no cervical or axillary lymphadenopathy Discharge Data Allergies Allergy/AdvReac Type Severity Reaction Status Date / Time Macrolide Antibiotics Allergy Mild abdominal Verified 08/09/19 21:09 pains Sulfa (Sulfonamide Allergy Mild abdominal Verified 08/09/19 21:09 Antibiotics) pains erythromycin base AdvReac Intermediate VOMITING Verified 08/09/19 21:09 Consultations 08/09/19 22:57 ED Decision to Admit Stat 08/10/19 01:28 Consult Case Management - Discharge Planning Routine 08/10/19 08:00 Consult Infectious Diseases Routine Ordered Studies 08/09/19 20:44 CT head/brain wo con Stat Hospital Course (1) Acute UTI: Presented with urinary frequency, dysuria with fever, body aches and chills UA suggestive of UTI Has been on intravenous ceftriaxone Clinically a little bit better today We will continue current medications Urine culture is growing E. 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 No symptoms of meningitis on admission Has been seen by ID specialist No need to do any further testing like LP at this time No acute symptoms (3) Hypertension: Blood pressure is controlled Controlled Will discharge this afternoon Total Time Total Time Spent Total Time Spent (In Minutes): 35 minutes Total Time Includes: Examination of the Patient, Discharge Planning, Medication Reconciliation and Communication With Other Providers Discharge Plan Discharge Items Patient Disposition: Home - Self-Care Reason For Visit: FEVER, URINARY SYMPTOMS Discharge Diagnosis: Acute UTI, hypertension Condition on Discharge: Good Activity: Resume your previous activity Non-emergency contact: Primary Care Provider Call non-emergency contact if: you have any medication questions and your symptoms worsen Follow-up/Referrals: Aleja Godoy MD [Primary Care Provider] - (Your doctor's office will give you a call with an appointment within 7 days) Diet: Heart Healthy Addtl Attending Provider Instructions: Please finish the course of antibiotic Drink more fluid to avoid dehydration Pending Studies at Discharge: No Stand-Alone Forms: My [facility], Smoking Cessation Medications and DC Order Prescriptions: New cephalexin 500 mg Capsule 500 mg PO TID Qty: 12 RF: 0 Continued aspirin 81 mg Tablet,Delayed Release (Dr/Ec) 81 mg PO QAM RF: 0 Otc Sinus Pills 2 tabs PO UD PRN (Reason: SINUS COELLO) RF: 0 lisinopril [Zestril] 40 mg tablet 40 mg PO QAM RF: 0 citalopram [Celexa] 40 mg tablet 40 mg PO QAM RF: 0 multivitamin Tablet 1 tab PO QAM RF: 0 calcium carbonate-vitamin D3 [Calcium 600 + D(3)] 600 mg(1,500mg) -200 unit Tablet 2 tab PO QAM RF: 0 atorvastatin 40 mg Tablet 40 mg PO QAM RF: 0 omeprazole 20 mg Tablet,Delayed Release (Dr/Ec) 20 mg PO QAM RF: 0 Discharge Orders: Discharge Order (Routine); Ordered 08/12/19 Ordered By: Arvin Durand/Other Patient Handouts: Diabetes Type 2 Managing Admission Data Admit Date/Time: 08/09/19 23:40 Attending Provider: Arvin Arauz Admit Provider: Mal Collins Primary Care Provider: Aleja Godoy Other Providers: Mal Collins ; Armida Miller Other Interventions: Discharge Summary Assessment (RN) Last Done: 08/12/19 12:26 DC Date/Time DO NOT enter until pt leaves facility: 08/12/19 13:21
== END 2019-08-12 13:21 | disposition home or self-care (01) | DRG 690 ==
LOC: ED 20:21 → 3E 23:40